=== PATIENT | male | born 1995 | race Two or more races ===

== ENCOUNTER 2024-06-30 16:26 | Inpatient (IN) | payer MEDICAID, OTHER ==
[~2024-06-30] VITALS: Ht 165.1 cm; Wt 123.0 kg
--- NOTE | 2024-06-30 18:22 | ED.PDOC ---
SOB-HPI HPI Comments 29Y M with PMHx HTN and sleep apnea presents to ED for chief complaint SOB [id number]. Additional symptoms include chills and cough. Per pt, SOB worsens with light exertion. Pt denies chest pain, nausea, vomiting, and diarrhea. Pt denies trauma and recent illness. Chief Complaint: Shortness of Breath Time Seen by MD: 17:50 Reviewed notes: Nurses Notes, Medications, Allergies Mode of Arrival: Ambulatory Severity: Mild Timing: Weeks Duration: Since onset Context: At Rest, With Light Exertion PE Risk Factors: None History of: None Modifying Factors: Nothing Associated Signs and Symptoms: Cough, Other Past Medical History Past Medical History (Other): sleep apnea Surgical History: Denies all surgeries Family History Family History: Unknown Social History Smoker: Non-Smoker Alcohol: Denies ETOH Use Drugs: Denies Drug Use Lives In: Home Constitutional: reports: chills; denies: diaphoresis, fatigue, fever, malaise, sweats, weakness, others EENTM: denies: blurred vision, double vision, ear bleeding, ear discharge, ear drainage, ear pain, ear ringing, eye pain, eye redness, hearing loss, mouth pain, mouth swelling, nasal discharge, nose bleeding, nose congestion, nose pain, photophobia, tearing, throat pain, throat swelling, voice changes, others Respiratory: reports: cough, SOB at rest, shortness of breath, SOB with excertion; denies: hemoptysis, orthopnea, stridor, wheezing, others Cardiovascular: denies: chest pain, dizzy spells, diaphoresis, Dyspnea on exertion, edema, irregular heart beat, left arm pain, lightheadedness, palpitations, PND, syncope, others Gastrointestinal: denies: abdomen distended, abdominal pain, blood streaked bowels, constipated, diarrhea, dysphagia, difficulty swallowing, hematemesis, melena, nausea, poor appetite, poor fluid intake, rectal bleeding, rectal pain, vomiting, others Genitourinary: denies: burning, dysuria, flank pain, frequency, hematuria, incontinence, penile discharge, penile sore, pain, testicle pain, testicle swelling, urgency, others Neurological: denies: dizziness, fainting, headache, left sided numbness, left sided weakness, numbness, paresthesia, pre-existing deficit, right sided numbness, right sided weakness, seizure, speech problems, tingling, tremors, weakness, others Musculoskeletal: denies: back pain, gout, joint pain, joint swelling, muscle pain, muscle stiffness, neck pain, others Integumetry: denies: bruises, change in color, change in hair/nails, dryness, laceration, lesions, lumps, rash, wounds, others Allergic/Immunocompromised: denies: Difficulty Healing, Frequent Infections, Hives, Itching, others Hematologic/Lymphatic: denies: anemia, blood clots, easy bleeding, easy bruising, swollen glands, others Endocrine: denies: excessive hunger, excessive sweating, excessive thirst, excessive urination, flushing, intolerance to cold, intolerance to heat, unexp lained weight gain, unexplained weight loss, others Psychiatric: denies: anxiety, bipolar disorder, depression, hopeless, panic disorder, schizophrenia, sleepless, suicidal, others All Other Systems: Reviewed and Negative Physical Exam General Appearance: No Apparent Distress, Normal HEENT: Normal ENT Inspection, Pharynx Normal, TMs Normal Neck: Full Range of Motion, Non-Tender, Normal, Normal Inspection Respiratory: Chest Non-Tender, Lungs Clear, No Accessory Muscle Use, No Respiratory Distress, Normal Breath Sounds Cardiovascular: No Edema, No JVD, No Murmur, No Gallop, Normal Peripheral Pulse s, Regular Rate/Rhythm Breast Exam: Deferred Gastrointestinal: No Organomegaly, Non Tender, No Pulsatile Mass, Normal Bowel Sounds, Soft Genitalia: Deferred Pelvic: Deferred Rectal: Deferred Extremities: No calf tenderness, Normal capillary refill, Normal inspection, Normal range of motion, Non-tender, No pedal edema Musculoskeletal : Apperance: Normal Neurologic: Alert, ict development manager II-XII nml as Tested, No Motor Deficits, Normal Affect, Normal Mood, No Sensory Deficits Cerebellar Function: Normal Reflexes: Normal Skin: Dry, Normal Color, Warm Lymphatic: No Adenopathy Was a procedure done? Was a procedure done?: No Differential Dx Differential Diagnosis: CHF, Myocardial infarction, Pneumonia, Pulmonary Embolism, Respiratory Distress, URI X-Ray, Labs, Meds, VS Vital Signs Date Time Temp Pulse Resp B/P (MAP) Pulse Ox O2 Delivery O2 Flow Rate FiO2 06/30/24 20:16 99.6 91 18 169/102 (124) 97 99.6 06/30/24 16:54 98.9 92 18 166/92 (116) 99 Lab Test 06/30/24 19:00 Range/Units White Blood Count 11.1 H 4.4-10.8 10^3/uL Red Blood Count 4.14 L 4.5-5.90 10^6/uL Hemoglobin 11.7 L 13.5-17.5 g/dL Hematocrit 34.6 L 41.0-53.0 % Mean Corpuscular Volume 83.6 80.0-100.0 fL Mean Corpuscular Hemoglobin 28.2 28.0-32.0 pg Mean Corpuscular Hemoglobin Concent 33.7 32.0-36.0 g/dL Red Cell Distribution Width 13.5 11.8-14.3 % Platelet Count 218 140-450 10^3/uL Mean Platelet Volume 9.9 6.9-10.8 fL Neutrophils (%) (Auto) 74.0 37.0-80.0 % Lymphocytes (%) (Auto) 18.8 10.0-50.0 % Monocytes (%) (Auto) 4.0 0.0-12.0 % Eosinophils (%) (Auto) 2.3 0.0-7.0 % Basophils (%) (Auto) 0.9 0.0-2.0 % Neutrophils # (Auto) 8.2 1.6-8.6 10 ^3/uL Lymphocytes # (Auto) 2.1 0.4-5.4 10 ^3/uL Monocytes # (Auto) 0.4 0-1.3 10 ^3/uL Eosinophils # (Auto) 0.3 0-0.8 10 ^3/uL Basophils # (Auto) 0.1 0-0.2 10 ^3/uL Nucleated Red Blood Cells 0.1 % Sodium Level 136 136-145 mmol/L Potassium Level 4.0 3.5-5.1 mmol/L Chloride Level 97 L 98-107 mmol/L Carbon Dioxide Level 28 20-31 mmol/L Anion Gap 11 5-15 Blood Urea Nitrogen 34 H 9-23 mg/dL Creatinine 8.49 H 0.700-1.30 mg/dL Glomerular Filtration Rate Calc 8 >90 mL/min BUN/Creatinine Ratio 4.0 L 10.0-20.0 Serum Glucose 261 H 74-106 mg/dL Calcium Level 9.4 8.7-10.4 mg/dL Total Bilirubin 0.3 0.2-1.0 mg/dL Aspartate Amino Transferase (AST) 14 13-40 U/L Alanine Aminotransferase (ALT) 32 7-40 U/L Alkaline Phosphatase 115 46-116 U/L Troponin I High Sensitivity 6 </=54 ng/L B-Type Natriuretic Peptide 823.51 0-100 pg/mL Total Protein 8.0 5.7-8.2 g/dL Albumin 4.5 3.2-4.8 g/dL X-Ray, Labs, Meds, VS Comment Imaging: X-rays and CT scans were reviewed and interpreted by this provider, imaging shows no fractures and no pathological disease. Pending radiology review. Laboratory: Labs reviewed and interpreted by this provider. Patient's labs showed acute kidney failure Recommend cardiology consult for possible CHF Recommend nephrology consult Recommend Pulmonary consult recommend De Jesus catheter for I&Os Patient has prior medical visits reviewed. Med reconciliation performed Vital signs reviewed Time of 1ST Reevaluation: 18:20 Reevaluation 1ST: Unchanged Patient Education/Counseling: Diagnosis, Treatment Family Education/Counseling: No Family Present Departure 1 Departure Time of Disposition: 21:18 Impression: Primary Impression: Kidney failure, acute Qualified Codes: N17.9 - Acute kidney failure, unspecified Additional Impressions: Pleural effusion associated with pulmonary infection CHF (congestive heart failure) Qualified Codes: I50.21 - Acute systolic (congestive) heart failure Disposition: 09 ADMITTED INPATIENT Condition: Fair Critical Care Note Critical Care Time?: No Stability Stability form required: No Heart Score Heart Score: Heart Score Response (Comments) Value History N/A 0 EKG N/A 0 Age N/A 0 Risk Factors N/A 0 Troponin N/A 0 Total 0 I personally scribed for JOI ALICEA ([email or web address]) on 06/30/24 at 18:22. Electronically submitted by Jazzmine Bobo ([email or web address]). JOI ALICEA Jun 30, 2024 18:22
--- NOTE | 2024-06-30 19:50 | DVH ---
EXAMINATION: AP portable chest radiograph CLINICAL HISTORY: sob COMPARISON: None FINDINGS: Vascular redistribution and interstitial prominence. Left basilar opacities with blunting of the lef t costophrenic angle. The cardiomediastinal silhouette otherwise appears grossly within normal limits given technique. No definite pneumothorax. IMPRESSION: Congestive type pattern with possible left pleural effusion. Underlying consolidation not excluded. P lease correlate to exclude infection.
[2024-06-30 20:38] LABS: Basophils # (auto) 0.1 10 ^3/uL (0-0.2); Basophils % (auto) 0.9 % (0.0-2.0); Eosinophils # (auto) 0.3 10 ^3/uL (0-0.8); Eosinophils % (auto) 2.3 % (0.0-7.0); Hematocrit 34.6 % (41.0-53.0); Hemoglobin 11.7 g/dL (13.5-17.5); Lymphocytes # (auto) 2.1 10 ^3/uL (0.4-5.4); Lymphocytes % (auto) 18.8 % (10.0-50.0); Mean Corpuscular Hemoglobin 28.2 pg (28.0-32.0); Mean Corpuscular Hgb Conc. 33.7 g/dL (32.0-36.0); Mean Corpuscular Volume 83.6 fL (80.0-100.0); Monocytes # (auto) 0.4 10 ^3/uL (0-1.3); Neutrophils # (auto) 8.2 10 ^3/uL (1.6-8.6); Nucleated Red Blood Cells % 0.1 %; Platelet Count (auto) 218 10^3/uL (140-450); Red Blood Cells 4.14 10^6/uL (4.5-5.90); Red Cell Distribution Width 13.5 % (11.8-14.3); White Blood Cell 11.1 10^3/uL (4.4-10.8)
[2024-06-30 21:02] LABS: Alanine Aminotransferase 32 U/L (7-40); Albumin 4.5 g/dL (3.2-4.8); Alkaline Phosphatase 115 U/L (46-116); Anion Gap 11 (5-15); Aspartate Aminotransferase 14 U/L (13-40); Calcium 9.4 mg/dL (8.7-10.4); Carbon Dioxide 28 mmol/L (20-31)
[2024-06-30 21:03] LABS: Bilirubin, Total 0.3 mg/dL (0.2-1.0); Blood Urea Nitrogen 34 mg/dL (9-23); Chloride 97 mmol/L (98-107); Glucose 261 mg/dL (74-106); Sodium 136 mmol/L (136-145)
--- NOTE | 2024-06-30 22:14 | DVHHPRES ---
History of Present Illness Resident Creating Document: GUDELIA HURST RESIDENT History of Present Illness This is a 29 years old male with past medical history of hypertension, hyperlipidemia, type 2 diabetes mellitus, obstructive sleep apnea on CPAP, ESRD on hemodialysis presented to the ED with a chief complaint of shortness of breath and dry cough for last two weeks prior to this admission. According to the patient-shortness of breath started two weeks ago and aggravated with exertion and not relieved with taking rest and associated with dry cough and wheezing. The patient denies fever, chest pain, productive cough, nausea, vomiting, abdominal pain, any change in bowel and bladder habit, sick contact or any recent traveling. The patient is on hemodialysis 3 times a week for last 1.5 yr due to ESRD. Past Medical History Hypertension, hyperlipidemia, type 2 diabetes mellitus, obstructive sleep apnea on CPAP, ESRD on hemodialysis Past Surgical History AV fistula Family History None Lives: with Family Past Social History Nonsmoker, nonalcoholic and never tried any drugs. Review of Systems Constitutional: No: Fever, Chills, Sweats, Weakness, Malaise, Other Eyes: No: Pain, Vision change, Conjunctivae inflammation, Eyelid inflammation, Other, Redness ENT: No: Ear pain, Ear discharge, Nose pain, Nose discharge, Nose congestion, Mouth pain, Mouth swelling, Throat pain, Throat swelling, Other Respiratory: Cough, Dry, Shortness of breath, Wheezing; No: SOB with excertion, Hemoptysis, Pleuritic Pain, Sputum, Wheezing, Other Cardiovascular: Edema; No: Chest Pain, Palpitations, Orthopnea, Paroxysmal Noc. Dyspnea, Lt Headedness, Other Gastrointestinal: No: Nausea, Vomiting, Abdominal Pain, Diarrhea, Constipation, Melena, Hematochezia, Other Genitourinary: No Dysuria, No Frequency, No Incontinence, No Hematuria, No Retention, No Other Musculoskeletal: No: other, neck pain, shoulder pain, arm pain, back pain, hand pain, leg pain, foot pain Skin: No: Rash, Lesions, Jaundice, Bruising, Other Neurological: No: Weakness, Numbness, Incoordination, Change in speech, Confusion, Seizures, Other Allergies: Coded Allergies: NO KNOWN ALLERGIES (Unverified , 06/30/24) Exam Vital Signs Vital Signs Date Time Temp Pulse Resp B/P (MAP) Pulse Ox O2 Delivery O2 Flow Rate FiO2 06/30/24 20:16 99.6 91 18 169/102 (124) 97 99.6 General Appearance: Alert, Oriented X3, Cooperative, mild distress HEENT: Atraumatic, PERRLA, EOMI, Mucous membr. moist/pink Respiratory: Other (Scattered wheezes in bilateral lung bases) Cardiovascular: Regular rate, Normal S1, Normal S2, No murmurs Abdominal: Normal bowel sounds, Soft, No tenderness, No hepatospenomegaly, No masses Extremities: No clubbing, No cyanosis (Bilateral 1+ pedal edema) Skin: No rashes, No breakdown, No significant lesion Neuro: Normal gait, Normal speech, Strength at 5/5 X4 ext, Normal tone, Sensation intact, Other (Grossly intact cranial nerves) Psych/Mental Status: Mental status NL, Mood NL Labs/Xrays Labs Test 06/30/24 21:18 06/30/24 19:00 Range/Units Troponin I High Sensitivity 7 </=54 ng/L White Blood Count 11.1 H 4.4-10.8 10^3/uL Red Blood Count 4.14 L 4.5-5.90 10^6/uL Hemoglobin 11.7 L 13.5-17.5 g/dL Hematocrit 34.6 L 41.0-53.0 % Mean Corpuscular Volume 83.6 80.0-100.0 fL Mean Corpuscular Hemoglobin 28.2 28.0-32.0 pg Mean Corpuscular Hemoglobin Concent 33.7 32.0-36.0 g/dL Red Cell Distribution Width 13.5 11.8-14.3 % Platelet Count 218 140-450 10^3/uL Mean Platelet Volume 9.9 6.9-10.8 fL Neutrophils (%) (Auto) 74.0 37.0-80.0 % Lymphocytes (%) (Auto) 18.8 10.0-50.0 % Monocytes (%) (Auto) 4.0 0.0-12.0 % Eosinophils (%) (Auto) 2.3 0.0-7.0 % Basophils (%) (Auto) 0.9 0.0-2.0 % Neutrophils # (Auto) 8.2 1.6-8.6 10 ^3/uL Lymphocytes # (Auto) 2.1 0.4-5.4 10 ^3/uL Monocytes # (Auto) 0.4 0-1.3 10 ^3/uL Eosinophils # (Auto) 0.3 0-0.8 10 ^3/uL Basophils # (Auto) 0.1 0-0.2 10 ^3/uL Nucleated Red Blood Cells 0.1 % Sodium Level 136 136-145 mmol/L Potassium Level 4.0 3.5-5.1 mmol/L Chloride Level 97 L 98-107 mmol/L Carbon Dioxide Level 28 20-31 mmol/L Anion Gap 11 5-15 Blood Urea Nitrogen 34 H 9-23 mg/dL Creatinine 8.49 H 0.700-1.30 mg/dL Glomerular Filtration Rate Calc 8 >90 mL/min BUN/Creatinine Ratio 4.0 L 10.0-20.0 Serum Glucose 261 H 74-106 mg/dL Calcium Level 9.4 8.7-10.4 mg/dL Total Bilirubin 0.3 0.2-1.0 mg/dL Aspartate Amino Transferase (AST) 14 13-40 U/L Alanine Aminotransferase (ALT) 32 7-40 U/L Alkaline Phosphatase 115 46-116 U/L B-Type Natriuretic Peptide 823.51 0-100 pg/mL Total Protein 8.0 5.7-8.2 g/dL Albumin 4.5 3.2-4.8 g/dL Assessment/Plan Assessment/Plan Assessment and plan: # Possible Gram-positive/Gram-negative pneumonia - chest x-ray demonstrated pulmonary vascular congestion with possible left pleural effusion - CT chest without contrast revealed moderate right pleural effusion and small left pleural effusion - Ordered flu, COVID, sputum C/S - Consulted Pulmonary for rt thoracentesis. - IV ceftriaxone 1 g daily and IV azithromycin 500 mg daily # ESRD on hemodialysis 3 times a week. - Ordered urine protein, sodium and creatinine, U/A, UDS - Ordered PTH, phosphorus, magnesium and vitamin D - Continue sevelamer 800 mg p.o. b.i.d. and calcitriol 0.25 mcg p.o. daily - [facility]. # Possible volume overload , rule out CHF - BNP is elevated and chest x-ray revealed pulmonary vascular congestion - Lasix 80 mg IV daily - Ordered Echo. # Hypertensive emergency - Continue nifedipine 60 mg p.o. daily and losartan 50 mg they p.o. daily - Clonidine 0.2 mg p.o. b.i.d - IV labetalol 10 mg Q2h p.r.n. # Type 2 diabetes mellitus, HbA1c 10.3 - Started Lantus 20 unit Q a.m. and moderate sliding scale of insulin Goal of care discussed with the patient for more than 20 minutes full code Plan of treatment discussed with Dr. Simpson Plan discussed with: Patient, Other My Orders Orders - GUDELIA HURST RESIDENT Procedure Category Date Status Time Admit ADMIT 06/30/24 Verified 22:10 Allergies [facility] 06/30/24 Verified 22:10 Code Status CODE 06/30/24 Verified 22:10 Renal DIET 07/01/24 Verified Standard(2gna,3gk,Lopho) Breakfast Sodium Chloride Lock PHA 07/01/24 Verified (Saline Lock Ns) 06:00 Ondansetron Hcl PHA 06/30/24 Verified (Zofran) 22:15 Complete Blood Count LAB 07/01/24 Verified 04:00 Comprehensive LAB 07/01/24 Verified Metabolic Panel 04:00 Echo 2d Mode Cardiac US 06/30/24 Verified DOP 22:10 Acetaminophen Tablet PHA 06/30/24 Verified (Tylenol Tablet) 22:15 Nitroglycerin PHA 06/30/24 Verified Sublingual (Ntrostat 22:15 Morphine Sulfate PHA 06/30/24 Verified Injection 22:15 Oxygen By Nasal RT 06/30/24 Verified Cannula 22:10 Stat Ekg For Chest [facility] 06/30/24 Verified Pain 22:10 Notify Md Of Changes [facility] 06/30/24 Verified From Base 22:10 Chartered Accountant For [facility] 06/30/24 Verified 24 Hours 22:10 Emergency Dysrhythmia [facility] 06/30/24 Verified Protocol 22:10 Rhythm Strips Once [facility] 06/30/24 Verified Every Shift 22:10 Date of Service: Jun 30, 2024 Billing Provider: AJ SIMPSON MD Common Visit Codes: [id number] INP/OBS CARE (HIGH) GUDELIA HURST RESIDENT Jun 30, 2024 22:14 AJ SIMPSON MD Jul 01, 2024 08:20
[2024-06-30] MEDS ORDERED: MORPHINE SULFATE INJ 2 MG/ml SYRG IV PRN (22:15)
[2024-06-30] MEDS ORDERED: NITROGLYCERIN 0.4 MG SL TAB SL PRN (22:15)
[2024-06-30] MEDS ORDERED: ONDANSETRON HCL 4 MG/2 ML VIAL IV PRN (22:15)
[2024-06-30] MEDS ORDERED: DEXTROSE (50%) 50ML SYRG IV PRN (22:30)
--- NOTE | 2024-06-30 22:32 | DVH ---
Exam: CT CHEST WITHOUT CONTRAST History: sob Comparison Study: None available at time of dictation. Technique: Multidetector spiral CT of the chest was performed from lower neck to pubic symphysis Axia l, coronal and sagittal multiplanar reformats were performed by the [facility] Radiation Dose : 1. Chest/Abdomen/Pelvis: CTDIvol 31 mGy, DLP 1187 mGy*cm. Findings: Lower neck: Within normal limits Lungs: Within normal limits Heart/Vascular Structures: Within normal limits Lymph Nodes: No adenopathy Pleura: Moderate right and mild left pleural effusions. Musculoskeletal: No aggressive focal bony lesions, acute fractures or dislocation. Upper abdomen: Unremarkable. IMPRESSION: Moderate right and small left pleural effusions with adjacent compressive atelectasis.
[2024-06-30 22:56] LABS: Magnesium 2.1 mg/dL (1.6-2.6)
[2024-06-30 23:03] LABS: Phosphorus 5.7 mg/dL (2.4-5.1)
[2024-06-30 23:59] LABS: LDL Cholesterol 43 mg/dL (< 100)
[2024-07-01] VITALS (13 sets, daily range): BP systolic 144–173; BP diastolic 79–105; PULSE 88–116; RESP 12–24; TEMP 97.7–98.7; O2SAT 92–97
[2024-07-01] LABS: Cholesterol 102 mg/dL (< 200)
[2024-07-01 00:02] LABS: HDL Cholesterol 28 mg/dL (40-59); Triglycerides 229 mg/dL (< 150)
[2024-07-01] MEDS: NIFEdipine ER 30 MG TAB PO ONE (00:19)
[2024-07-01] MEDS: SEVELAMER 800 MG TAB PO ONE (00:19)
[2024-07-01] MEDS: FUROSEMIDE 20 MG/2 ML VIAL IV ONE (00:20)
[2024-07-01] MEDS: cefTRIAXone 1GM/50ML D5W 50 ML IV ONE (00:21)
[2024-07-01] MEDS: LOSARTAN POTASSIUM 50 MG TAB PO ONE (00:23)
[2024-07-01 01:06] LABS: COVID19 ANTIGEN SOFIA FIA NEGATIVE (NEGATIVE); Rapid Influenza A Negative (Negative); Rapid Influenza B Negative (Negative)
[2024-07-01] MEDS: AZITHROMYCIN 500MG/ 250ML 250 ML IV ONE (01:36)
[2024-07-01] MEDS: LABETALOL HCL 20 MG/4 ML VL IV PRN (02:40)
[2024-07-01] MEDS ORDERED: IPRATROPIUM BROM 0.5 MG/2.5ML INH SOL NEB PRN (03:45)
[2024-07-01] MEDS: cloNIDine HCL 0.1 MG TAB PO SCH (04:10)
[2024-07-01] MEDS: ALBUTEROL SULF 2.5 MG/0.5ML(0.5%) NEB SOLN NEB PRN (04:44)
[2024-07-01 06:00] LABS: Alanine Aminotransferase 24 U/L (7-40); Albumin 3.8 g/dL (3.2-4.8); Alkaline Phosphatase 98 U/L (46-116); Anion Gap 12 (5-15); BUN/Creatinine Ratio 4.6 (10.0-20.0); Calcium 8.8 mg/dL (8.7-10.4); Carbon Dioxide 26 mmol/L (20-31); Chloride 99 mmol/L (98-107); Potassium 3.9 mmol/L (3.5-5.1); Sodium 137 mmol/L (136-145)
[2024-07-01 06:01] LABS: Total Protein 6.8 g/dL (5.7-8.2)
[2024-07-01 06:02] LABS: Basophils # (auto) 0.1 10 ^3/uL (0-0.2); Basophils % (auto) 0.8 % (0.0-2.0); Eosinophils # (auto) 0.3 10 ^3/uL (0-0.8); Eosinophils % (auto) 2.5 % (0.0-7.0); Hematocrit 28.7 % (41.0-53.0); Hemoglobin 9.9 g/dL (13.5-17.5); Lymphocytes # (auto) 2.3 10 ^3/uL (0.4-5.4); Lymphocytes % (auto) 20.8 % (10.0-50.0); Mean Corpuscular Hemoglobin 28.6 pg (28.0-32.0); Mean Corpuscular Hgb Conc. 34.4 g/dL (32.0-36.0); Mean Corpuscular Volume 83.1 fL (80.0-100.0); Monocytes # (auto) 0.5 10 ^3/uL (0-1.3); Monocytes % (auto) 4.4 % (0.0-12.0); Neutrophils # (auto) 7.8 10 ^3/uL (1.6-8.6); Neutrophils % (auto) 71.5 % (37.0-80.0); Platelet Count (auto) 205 10^3/uL (140-450); Red Blood Cells 3.45 10^6/uL (4.5-5.90); Red Cell Distribution Width 13.3 % (11.8-14.3); White Blood Cell 10.8 10^3/uL (4.4-10.8)
[2024-07-01 06:08] LABS: Aspartate Aminotransferase 11 U/L (13-40); Bilirubin, Total 0.2 mg/dL (0.2-1.0); Blood Urea Nitrogen 43 mg/dL (9-23); Glucose 285 mg/dL (74-106)
[2024-07-01] MEDS ORDERED: INSLISPI SC (06:45)
[2024-07-01] MEDS ORDERED: CLON0.2T PO (06:45)
[2024-07-01] MEDS ORDERED: CALC0.25 PO (06:45)
[2024-07-01] MEDS ORDERED: LOSA-533 PO (06:45)
[2024-07-01] MEDS ORDERED: FOLITAB22 PO (06:45)
[2024-07-01] MEDS: ACCU-CHEK COMFORT CURVE STRIP VI SCH (06:47)
[2024-07-01] MEDS ORDERED: INSLANTI SC (06:48)
[2024-07-01] MEDS: InsuLIN REG 1unit/0.01ml Soln (100units/ml) SC SCH ×2 (06:51→22:29)
[2024-07-01] MEDS: INSULIN LANTUS (GLARGINE) 1 /0.01ml (100units/ml) SC SCH (06:52)
[2024-07-01] MEDS: SODIUM CHLOR 0.9% PF (SALINE LOCK) 10ML VIAL/SYR IV SCH (06:53)
[2024-07-01 07:17] LABS: INR 1.01 (0.9-1.15); Partial Thromboplastin Time 27.9 SEC (24.5-34.5); Prothrombin Time 10.7 sec (9.3-11.8)
[2024-07-01 09:02] LABS: Hepatitis B Core Total AB Negative (Negative)
[2024-07-01] MEDS: SEVELAMER 800 MG TAB PO SCH (09:32)
[2024-07-01] MEDS: NIFEdipine ER 30 MG TAB PO SCH (09:32)
[2024-07-01] MEDS: LOSARTAN POTASSIUM 50 MG TAB PO SCH (09:32)
[2024-07-01] MEDS: CALCITRIOL 0.25 MCG CAP PO SCH (09:33)
[2024-07-01] MEDS: ACETAMINOPHEN 325 MG TAB PO PRN (10:43)
[2024-07-01 11:47] LABS: Hepatitis A Total Antibody Positive (Negative); Hepatitis B Surface Antibody Positive (Negative)
[2024-07-01 11:48] LABS: Hepatitis B Surface Antigen Negative (Negative); Hepatitis C Antibody Negative (Negative)
--- NOTE | 2024-07-01 12:51 | DVHPNRES ---
Progress Note Date Seen: Jul 01, 2024 Resident Creating Document: DEE DAWN RESIDENT Medical Necessity Reason Pt with a Central, PICC or Fol: No Subjective Review of Systems Patient is a 21-year-old male with past medical history of ESRD on hemodialysis, hypertension, recurrent pancreatitis, obstructive sleep apnea on CPAP and type 2 diabetes diagnosed 6 years ago, who came in due to shortness of breath that has been ongoing for the past 2 weeks. Patient notes that he has been having difficulty breathing, cough and wheezing for the past 2 weeks. Patient went to his PCP 2 weeks ago and was diagnosed with acute bronchitis and prescribed anti- inflammatory medications, which he states helped initially but eventually his symptoms got progressively worse. Per patient, yesterday his dyspnea was very bothersome which prompted this visit to the hospital. Denies having similar symptoms in the past. Patient is on dialysis 3 times a week, Tuesdays, , Friday via a left forearm fistula that is functioning. Patient has been on dialysis for 1.5 years. Past surgical history: Left forearm fistula Home medications: Calcitriol, clonidine, insulin glargine, insulin lispro, losartan Past Hospitalization: 2 years ago in [place] for pancreatitis Social & Personal history: Patient lives with his family and is unemployed. Denies using tobacco, alcohol, drugs. Allergies: Denies Patient seen and examined at bedside. Patient is alert and oriented to time, place person and responding to all questions. General: Fatigue Eyes: No Pain, No Vision change, No Conjunctivae inflammation, No Eyelid inflammation, No Other, No Redness ENT: No Ear pain, No Ear discharge, No Nose pain, No Nose discharge, No Nose congestion, No Mouth pain, No Mouth swelling, No Throat pain, No Throat swelling, No Other Cardiovascular: No Chest Pain, No Palpitations, No Orthopnea, Dyspnea, No Edema, No Lt Headedness, No Other Respiratory: Productive cough, SOB with exertion, Wheezing, No Hemoptysis, No Pleuritic Pain, No Sputum, No Other Gastrointestinal: No Nausea, No Vomiting, No Abdominal Pain, No Diarrhea, No Constipation, No Melena, No Hematochezia, No Other Genitourinary: No Dysuria, No Frequency, No Incontinence, No Hematuria, No Retention, No Other Musculoskeletal: No other, No neck pain, No shoulder pain, No arm pain, No back pain, No hand pain, No leg pain, No foot pain Skin: No Rash, No Lesions, No Jaundice, No Bruising, No Other Objective vital signs Vital Sign Date Time Temp Pulse Resp B/P (MAP) Pulse Ox O2 Delivery O2 Flow Rate FiO2 07/01/24 09:32 144/79 07/01/24 09:00 97.7 93 14 94 97.7 07/01/24 08:10 Room Air* 0 21 medications Current Medications Medications Dose Ordered Sig/Bharti Route Start Time Stop Time Status Last Admin Dose Admin Sodium Chloride 10 ml Q8HR IV 07/01/24 06:00 07/01/24 06:53 10 ML Ondansetron HCl 4 mg Q4HP PRN IV 06/30/24 22:15 Acetaminophen 650 mg Q6HP PRN PO 06/30/24 22:15 07/01/24 10:43 650 MG Nitroglycerin 0.4 mg Q5MINP PRN SL 06/30/24 22:15 Morphine Sulfate 2 mg Q30M PRN IV 06/30/24 22:15 Furosemide 80 mg DAILY IV 07/01/24 10:00 Ceftriaxone Sodium 50 ml @ 100 mls/hr DAILY@2100 IV 07/01/24 21:00 Azithromycin 250 ml @ 125 mls/hr DAILY@2200 IV 07/01/24 22:00 Nifedipine 60 mg DAILY PO 07/01/24 10:00 07/01/24 09:32 60 MG Losartan Potassium 50 mg DAILY PO 07/01/24 10:00 07/01/24 09:32 50 MG Calcitriol 0.25 mcg DAILY PO 07/01/24 10:00 07/01/24 09:33 0.25 MCG Diagnostic Test (Pha) 1 strip ACHS 07/01/24 07:00 07/01/24 11:23 1 STRIP Insulin Human Regular HS SC 07/01/24 22:00 Insulin Human Regular AC SC 07/01/24 07:00 07/01/24 11:22 6 UNITS Dextrose 50 ml UD PRN IV 06/30/24 22:30 Sevelamer HCl 800 mg BID PO 07/01/24 10:00 07/01/24 09:32 800 MG Labetalol HCl 10 mg Q2HPRN PRN IV 07/01/24 01:00 07/01/24 02:40 10 MG Insulin Glargine 20 units QAM SC 07/01/24 07:00 07/01/24 06:52 20 UNITS Albuterol 2.5 mg Q4HPRN PRN NEB 07/01/24 03:45 07/01/24 04:44 2.5 MG Ipratropium [place] 0.5 mg Q4HPRN PRN NEB 07/01/24 03:45 Clonidine HCl 0.2 mg BID PO 07/01/24 10:00 07/01/24 04:10 0.2 MG Examination General Appearance: Cooperative. Well developed. Well nourished. NAD Head Exam: Normal inspection Neck Exam: Normal inspection. Non-tender. Normal alignment Pulmonary/Respiratory: Chest non-tender. Clear bilateral breath sounds, no crackles, no wheezing. Cardiovascular/Chest: Regular rate and rhythm. Blowing systolic murmur heard most prominent in the mitral area. No JVD. Peripheral Pulses: 2+ Radial (R). 2+ Radial (L). 2+ Pedal (R). 2+ Pedal (L) Abdominal Exam: Normal bowel sounds. Soft. normal abdomen, no visible veins, Nontender. No hepatospenomegaly. No masses Ankle Exam: Negative ankle edema Lower extremities: 1+ lower extremity edema Neuro/Mental Status: A&O x4. Coherent. Thoughts/Psych: Normal thought pattern. Appropriate mood and affect. Good judgement and insight Skin Exam: Normal inspection. Normal color. Warm. Dry laboratory and microbiology Laboratory Tests 07/01/24 04:25 Test 07/01/24 04:25 Range/Units Serum Glucose 285 H 74-106 mg/dL Labs and/or images reviewed: Labs reviewed by me, Image(s) reviewed by me Problem List/Assessment/Plan Problem List/Assessment/Plan Likely pneumonia, Gram-positive versus Gram-negative Pleural effusion, bilateral, likely due to above CHF can not be entirely ruled out at present - CXR: Congestive type pattern and possible left pleural effusion. Underlying consolidation not excluded. - chest CT: Moderate right and small left pleural effusions with adjacent compressive atelectasis. -pulmonology on board - azithromycin IV 500 mg, IV Rocephin - ipratropium, albuterol med nebs - IV furosemide 80 mg b.i.d. Type 2 diabetes, insulin dependent, uncontrolled with A1c 10.3 - Lantus-20 units q.a.m. Moderate sliding scale insulin ESRD on hemodialysis 3 times a week Likely hyperparathyroidism due to above - nephrology on board - sevelamer 800 mg p.o. b.i.d. - IV albumin - calcitriol 0.25 mcg Hypertension - clonidine 0.2 mg p.o. b.i.d. - labetalol 10 mg as needed for SBP greater than 150 - losartan 50 mg - nifedipine 60 mg Obstructive sleep apnea, on CPAP Goals of care: Full code, discussed for >16 minutes on 07/01/24 Plan discussed with patient Plan discussed with Dr. Fan Plan discussed with: Patient, Other (RN) My Orders My Orders Orders - DEE DAWN RESIDENT Procedure Category Date Status Time Bipap/Cpap For Sleep RT 07/01/24 Logged Apnea 12:15 Communication Order ORDERS 07/01/24 Transmitted 12:16 Date of Service: Jul 01, 2024 Billing Provider: ADRY FAN MD Common Visit Codes: [id number] INP/OBS CARE(HIGH), PROCEDURE ONLY (40256) Coding Comment Comment attending attestation ESRD on HD acute respiratory failure 2/2 plef vs PNA PLEF possible PNA IDDM obesity ANDRZEJ HTN nephro for routine HD empiric ceft and azithro echo basal bolus insulin resume home meds pulm consult possible tap bipap at night POCUS done today, b/l PLEF, air bronchogram, b lines DEE DAWN RESIDENT Jul 01, 2024 12:51 ADRY FAN MD Jul 01, 2024 18:28
[2024-07-01] MEDS: FUROSEMIDE 100 MG/10ML VIAL IV SCH ×2 (13:05→17:24)
--- NOTE | 2024-07-01 14:00 | DVHSR ---
APPROVED REPORT EXAM: Two-dimensional and M-mode echocardiogram with Doppler and color Doppler. Blood Pressure: 159/94 mmHg INDICATION Pulmonary vascular congestion RISK FACTORS Height: 65, Weight: 262 DIMENSIONS LVDd5.5 (3.8-5.7cm)LA (2D)4.5 (1.9-4.0cm)Aortic Root3.3 (2.0-3.7cm) LVDs3.7 (2.5-4.0cm)LA (MM) (1.9-4.0cm)Aortic Cusp Exc2.1 (1.5-2.0cm) EF (%) 60.0 (55-70%)Rt. Atrium4.6 (1.9-4.0cm)Asc. Aorta cm IVSd1.3 (0.7-1.1cm)RV (D) (1.8-2.4cm) PWd1.2 (0.7-1.1cm) Mitral Valve MitralMitral Stenosis E wave1.52m/sMV Mean GR.6mmHg A wavem/sMV Peak GR.91mmHg E/A ratio0.02D MVAcm2 Aortic Valve Aortic ValveAortic Stenosis V11.66m/Desi Mean GR.8mmHg V22.10m/Desi Peak GR.18mmHg LVOT Diameter2.1 (1.8-2.4cm)Doppler AVA2.74cm2 Pulmonic Valve V21.09m/s Tricuspid Valve TR Velocity3.70m/s [id number] Other Information Technically limited study due to body habitus. Conclusion Normal left ventricular size and dimension. Normal left ventricular systolic function estimated ejec tion fraction 55%. There is a grade 1 diastolic dysfunction. Normal right ventricular size and dimension. Normal right ventricular systolic function. There is s evere pulmonary hypertension with estimated right ventricular systolic pressure 63 mm of mercury Normal biatrial size and dimension. Normal aortic valve structure and function. Normal mitral valve structure and function. Normal tricuspid valve structure and function. Pulmonary valve is grossly normal. No pericardial effusion.
--- NOTE | 2024-07-01 16:31 | DVHINCON2 ---
Date of service: Jul 01, [address] Valdez. Reason for Consultation End-stage renal disease management. History of Present Illness 29-year-old patient with significant history of end-stage renal disease on hemodialysis TTS with last dialysis on June 29, hypertension, hyperlipidemia, obstructive sleep apnea who presents to the hospital with dyspnea on exertion associated with a dry cough and wheezing without fever chills, chest pain orthopnea or PND. + for leg edema Initial evaluation in the ER included a chest x-ray showing bilateral pleural effusions. Labs revealed findings consistent with his end-stage renal disease status. Patient does not limits fluid intake at home and does not tolerate usually more than 800 ml UF due to headache. Past Medical History Hypertension, hyperlipidemia, type 2 diabetes mellitus, obstructive sleep apnea on CPAP, ESRD on hemodialysis Past Surgical History Av fistula creation. Allergies: Coded Allergies: NO KNOWN ALLERGIES (Unverified , 06/30/24) Home Meds Reported Medications Insulin Glargine (Lantus) 100 Unit/Ml Inj, 100 UNIT SC, INJ 07/01/24 Insulin Lispro (Human) (Humalog) 100 Unit/Ml Inj, 100 UNIT SC, INJ 07/01/24 Folic Rzbl-Wvpndthoso-Qupfxbqj (Folbic) Tab, 1 TAB PO DAILY, #90 TAB 1 Refill 07/01/24 Clonidine Hydrochloride (Clonidine Hcl) 0.2 Mg Tab, 1 TAB PO BID, #60 TAB 5 Refills 07/01/24 Calcitriol (Calcitriol) 0.25 Mcg Cap, 1 CAP PO DAILY, #30 CAP 5 Refills 07/01/24 Losartan Potassium (Losartan Potassium) 25 Mg Tab, 1 TAB PO DAILY, #90 TAB 1 Refill 07/01/24 Current Medications Current Medications Medications (Trade) Dose Ordered Sig/Bharti Route PRN Reason Start Time Stop Time Status Last Admin Sodium Chloride (Saline Lock Ns) 10 ml Q8HR IV 07/01/24 06:00 07/01/24 14:14 Ondansetron HCl (Zofran) 4 mg Q4HP PRN IV NAUSEA / VOMITING 06/30/24 22:15 Acetaminophen (Tylenol Tablet) 650 mg Q6HP PRN PO PAIN SCALE 1-3 OR TEMP>100.4 06/30/24 22:15 07/01/24 10:43 Nitroglycerin (Ntrostat Sublingual) 0.4 mg Q5MINP PRN SL FOR CHEST PAIN 06/30/24 22:15 Morphine Sulfate 2 mg Q30M PRN IV FOR CHEST PAIN 06/30/24 22:15 Furosemide (Lasix Injection) 80 mg DAILY IV 07/01/24 10:00 07/01/24 13:05 Ceftriaxone Sodium 50 ml @ 100 mls/hr DAILY@2100 IV 07/01/24 21:00 Azithromycin 250 ml @ 125 mls/hr DAILY@2200 IV 07/01/24 22:00 Nifedipine (Procardia Xl (Time-Release)) 60 mg DAILY PO 07/01/24 10:00 07/01/24 09:32 Losartan Potassium (Cozaar Tablet) 50 mg DAILY PO 07/01/24 10:00 07/01/24 09:32 Calcitriol (Rocaltrol Capsule) 0.25 mcg DAILY PO 07/01/24 10:00 07/01/24 09:33 Diagnostic Test (Pha) (Accu-Chek Comfort Curve T) 1 strip ACHS 07/01/24 07:00 07/01/24 11:23 Insulin Human Regular (InsuLIN R) HS SC 07/01/24 22:00 Insulin Human Regular (InsuLIN R) AC SC 07/01/24 07:00 07/01/24 11:22 Dextrose 50 ml UD PRN IV Blood Sugar LESS THAN 60 06/30/24 22:30 Sevelamer HCl (Renagel) 800 mg BID PO 07/01/24 10:00 07/01/24 09:32 Labetalol HCl (Labetalol HCl) 10 mg Q2HPRN PRN IV SBP>150 07/01/24 01:00 07/01/24 02:40 Insulin Glargine (Lantus) 20 units QAM SC 07/01/24 07:00 07/01/24 06:52 Albuterol (Ventolin Medneb) 2.5 mg Q4HPRN PRN NEB SHORTNESS OF BREATH 07/01/24 03:45 07/01/24 04:44 Ipratropium [place] (Atrovent Medneb) 0.5 mg Q4HPRN PRN NEB SHORTNESS OF BREATH 07/01/24 03:45 Clonidine HCl (Catapres Tablet) 0.2 mg BID PO 07/01/24 10:00 07/01/24 04:10 Family History: Patient reports no known family medical history. Family History Hypertension in the father Social History Denies smoking alcohol or drug abuse Review of Systems HEENT: Oral mucosa dry Neck no JVD Cardiovascular: Denies for chest pain denies orthopnea or PND Respiratory: +shortness of breath Gastrointestinal: Denies for nausea vomiting Musculoskeletal: Denies myalgias+ leg edema Neurological: Denies focal weakness Dermatological: Denies any rash The rest of the review of systems were reviewed pertinent positives and pertinent negatives are as per HPI up to 12 points review of systems H&P Exam Vital Signs/I&O Vital Sign Date Time Temp Pulse Resp B/P (MAP) Pulse Ox O2 Delivery O2 Flow Rate FiO2 07/01/24 13:05 144/79 07/01/24 13:00 98.1 100 16 95 98.1 07/01/24 10:00 Room Air 0.0 07/01/24 10:00 21 Physical Exam HEENT: No evidence of JVD, no oral ulcers. Pulmonary: Crackles on auscultation bilaterally Cardiovascular S1-S2, no S3 or S4 Abdomen: Bowel sounds positive, soft no rebound tenderness Skin: No rash Extremities: 2+ leg edema Neurological: Alert, oriented, no focal weakness Labs/Diagnostic Data Labs/Diagnostic Data Laboratory Tests Test 07/01/24 11:14 07/01/24 06:37 07/01/24 04:25 07/01/24 00:00 Range/Units POC Glucose 219 H 250 H 70-106 mg/dl White Blood Count 10.8 4.4-10.8 10^3/uL Red Blood Count 3.45 L 4.5-5.90 10^6/uL Hemoglobin 9.9 #L 13.5-17.5 g/dL Hematocrit 28.7 #L 41.0-53.0 % Mean Corpuscular Volume 83.1 80.0-100.0 fL Mean Corpuscular Hemoglobin 28.6 28.0-32.0 pg Mean Corpuscular Hemoglobin Concent 34.4 32.0-36.0 g/dL Red Cell Distribution Width 13.3 11.8-14.3 % Platelet Count 205 140-450 10^3/uL Mean Platelet Volume 9.3 6.9-10.8 fL Neutrophils (%) (Auto) 71.5 37.0-80.0 % Lymphocytes (%) (Auto) 20.8 10.0-50.0 % Monocytes (%) (Auto) 4.4 0.0-12.0 % Eosinophils (%) (Auto) 2.5 0.0-7.0 % Basophils (%) (Auto) 0.8 0.0-2.0 % Neutrophils # (Auto) 7.8 1.6-8.6 10 ^3/uL Lymphocytes # (Auto) 2.3 0.4-5.4 10 ^3/uL Monocytes # (Auto) 0.5 0-1.3 10 ^3/uL Eosinophils # (Auto) 0.3 0-0.8 10 ^3/uL Basophils # (Auto) 0.1 0-0.2 10 ^3/uL Nucleated Red Blood Cells 0.0 % Prothrombin Time 10.7 9.3-11.8 sec Prothrombin Time INR 1.01 0.9-1.15 Activated Partial Thromboplast Time 27.9 24.5-34.5 SEC Sodium Level 137 136-145 mmol/L Potassium Level 3.9 3.5-5.1 mmol/L Chloride Level 99 98-107 mmol/L Carbon Dioxide Level 26 20-31 mmol/L Anion Gap 12 5-15 Blood Urea Nitrogen 43 H 9-23 mg/dL Creatinine 9.26 H 0.700-1.30 mg/dL Glomerular Filtration Rate Calc 7 >90 mL/min BUN/Creatinine Ratio 4.6 L 10.0-20.0 Serum Glucose 285 H 74-106 mg/dL Calcium Level 8.8 8.7-10.4 mg/dL Total Bilirubin 0.2 0.2-1.0 mg/dL Aspartate Amino Transferase (AST) 11 L 13-40 U/L Alanine Aminotransferase (ALT) 24 7-40 U/L Alkaline Phosphatase 98 46-116 U/L Total Protein 6.8 5.7-8.2 g/dL Albumin 3.8 3.2-4.8 g/dL Influenza Type A Antigen Negative Negative Influenza Type B Antigen Negative Negative SARS-CoV-2 Antigen (Rapid) Negative NEGATIVE Test 06/30/24 23:16 06/30/24 21:18 06/30/24 19:00 Range/Units Hemoglobin A1c 10.3 H <5.7 % A1C Troponin I High Sensitivity 8 7 6 </=54 ng/L Triglycerides Level 229 H < 150 mg/dL Cholesterol Level 102 < 200 mg/dL LDL Cholesterol 43 < 100 mg/dL HDL Cholesterol 28 L 40-59 mg/dL Lipase 65 H 12-53 U/L Hepatitis A Antibody Total Positive H Negative Hepatitis B Surface Antigen Negative Negative Hepatitis B Surface Antibody Positive H Negative Hepatitis B Core Total Antibody Negative Negative Hepatitis C Antibody Negative Negative HIV (1&2) Antibody Negative Negative Phosphorus Level 5.7 H 2.4-5.1 mg/dL Magnesium Level 2.1 1.6-2.6 mg/dL Thyroid Stimulating Hormone (TSH) 3.70 0.55-4.78 uIU/mL White Blood Count 11.1 H 4.4-10.8 10^3/uL Red Blood Count 4.14 L 4.5-5.90 10^6/uL Hemoglobin 11.7 L 13.5-17.5 g/dL Hematocrit 34.6 L 41.0-53.0 % Mean Corpuscular Volume 83.6 80.0-100.0 fL Mean Corpuscular Hemoglobin 28.2 28.0-32.0 pg Mean Corpuscular Hemoglobin Concent 33.7 32.0-36.0 g/dL Red Cell Distribution Width 13.5 11.8-14.3 % Platelet Count 218 140-450 10^3/uL Mean Platelet Volume 9.9 6.9-10.8 fL Neutrophils (%) (Auto) 74.0 37.0-80.0 % Lymphocytes (%) (Auto) 18.8 10.0-50.0 % Monocytes (%) (Auto) 4.0 0.0-12.0 % Eosinophils (%) (Auto) 2.3 0.0-7.0 % Basophils (%) (Auto) 0.9 0.0-2.0 % Neutrophils # (Auto) 8.2 1.6-8.6 10 ^3/uL Lymphocytes # (Auto) 2.1 0.4-5.4 10 ^3/uL Monocytes # (Auto) 0.4 0-1.3 10 ^3/uL Eosinophils # (Auto) 0.3 0-0.8 10 ^3/uL Basophils # (Auto) 0.1 0-0.2 10 ^3/uL Nucleated Red Blood Cells 0.1 % Sodium Level 136 136-145 mmol/L Potassium Level 4.0 3.5-5.1 mmol/L Chloride Level 97 L 98-107 mmol/L Carbon Dioxide Level 28 20-31 mmol/L Anion Gap 11 5-15 Blood Urea Nitrogen 34 H 9-23 mg/dL Creatinine 8.49 H 0.700-1.30 mg/dL Glomerular Filtration Rate Calc 8 >90 mL/min BUN/Creatinine Ratio 4.0 L 10.0-20.0 Serum Glucose 261 H 74-106 mg/dL Calcium Level 9.4 8.7-10.4 mg/dL Total Bilirubin 0.3 0.2-1.0 mg/dL Aspartate Amino Transferase (AST) 14 13-40 U/L Alanine Aminotransferase (ALT) 32 7-40 U/L Alkaline Phosphatase 115 46-116 U/L B-Type Natriuretic Peptide 823.51 0-100 pg/mL Total Protein 8.0 5.7-8.2 g/dL Albumin 4.5 3.2-4.8 g/dL Parathyroid Hormone (Intact) 770.7 H 18.4-80.1 pg/mL Assessment Assessment: 1. End-stage renal disease on hemodialysis TTS 2. Diastolic heart failure exacerbation, acute 3. Hypovolemia. 4. Anemia of chronic kidney disease. 5. Diabetes type 2. Plan: HD today ordered. Continue dialysis 3 times a week inpatient. Optimize UF. Echo Add lasix IV Upon discharge Lasix BID 80 mg on non dialysis days Fluid restriction Less than 1 L per day. Cardiology consult Renal diet Thank you very much for allowing us to participate in the care of this patient Plan discussed with: Patient NEVILLE HUGHES MD Jul 01, 2024 16:31
[2024-07-01] MEDS ORDERED: ALBUMIN 25% 100 ML IV PRN (17:00)
[2024-07-01] MEDS: HYDROcodone-ACET 5/325MG TAB PO PRN (18:48)
[2024-07-01] MEDS: cefTRIAXone 1GM/50ML D5W 50 ML IV SCH (20:35)
--- NOTE | 2024-07-01 21:23 | DVHINCON2 ---
Date of service: Jul 01, 2024 Referring Physician Hiro Garcia MD Reason for Consultation Dyspnea, pleural effusion, atelectasis. History of Present Illness A 29-year-old man with past medical history of hypertension, hyperlipidemia, type 2 diabetes mellitus, obstructive sleep apnea on CPAP, and ESRD on hemodialysis who presented to the ED on 06/30/24 with a chief complaint of shortness of breath and dry cough x 2 weeks. SOB was worse w/ exertion and not relieved with rest, associated with dry cough and wheezing. The patient denied fever, chest pain, productive cough, nausea, vomiting, abdominal pain, or any other associated sx. Note, patient is on hemodialysis 3 times a week for last 1.5 years due to ESRD. Patient was admitted for further care and pulmonary consultation is requested for evaluation and management due to the above findings. Review of Systems: 14-point review of systems negative unless otherwise noted above. Past Medical History: Hypertension, hyperlipidemia, type 2 diabetes mellitus, obstructive sleep apnea on CPAP, ESRD on hemodialysis Past Surgical History: AV fistula Medications: Reviewed. Allergies: No known drug allergies. Family History: No family history of premature CAD. No family history of lung disorders. Social History: Nonsmoker. No alcohol or illicit drug use. Family History: Patient reports no known family medical history. Allergies: Coded Allergies: NO KNOWN ALLERGIES (Unverified , 06/30/24) Home Meds Reported Medications Insulin Glargine (Lantus) 100 Unit/Ml Inj, 100 UNIT SC, INJ 07/01/24 Insulin Lispro (Human) (Humalog) 100 Unit/Ml Inj, 100 UNIT SC, INJ 07/01/24 Folic Idpi-Odfkqbshqx-Jtfxwplo (Folbic) Tab, 1 TAB PO DAILY, #90 TAB 1 Refill 07/01/24 Clonidine Hydrochloride (Clonidine Hcl) 0.2 Mg Tab, 1 TAB PO BID, #60 TAB 5 Ref ills 07/01/24 Calcitriol (Calcitriol) 0.25 Mcg Cap, 1 CAP PO DAILY, #30 CAP 5 Refills 07/01/24 Losartan Potassium (Losartan Potassium) 25 Mg Tab, 1 TAB PO DAILY, #90 TAB 1 Refill 07/01/24 Current Medications Current Medications Medications (Trade) Dose Ordered Sig/Bharti Route PRN Reason Start Time Stop Time Status Last Admin Sodium Chloride (Saline Lock Ns) 10 ml Q8HR IV 07/01/24 06:00 07/01/24 14:14 Ondansetron HCl (Zofran) 4 mg Q4HP PRN IV NAUSEA / VOMITING 06/30/24 22:15 Acetaminophen (Tylenol Tablet) 650 mg Q6HP PRN PO PAIN SCALE 1-3 OR TEMP>100.4 06/30/24 22:15 07/01/24 17:22 Nitroglycerin (Ntrostat Sublingual) 0.4 mg Q5MINP PRN SL FOR CHEST PAIN 06/30/24 22:15 Morphine Sulfate 2 mg Q30M PRN IV FOR CHEST PAIN 06/30/24 22:15 Furosemide (Lasix Injection) 80 mg DAILY IV 07/01/24 10:00 07/01/24 16:55 DC 07/01/24 13:05 Ceftriaxone Sodium 50 ml @ 100 mls/hr DAILY@2100 IV 07/01/24 21:00 07/01/24 20:35 Azithromycin 250 ml @ 125 mls/hr DAILY@2200 IV 07/01/24 22:00 Nifedipine (Procardia Xl (Time-Release)) 60 mg DAILY PO 07/01/24 10:00 07/01/24 09:32 Losartan Potassium (Cozaar Tablet) 50 mg DAILY PO 07/01/24 10:00 07/01/24 09:32 Calcitriol (Rocaltrol Capsule) 0.25 mcg DAILY PO 07/01/24 10:00 07/01/24 09:33 Diagnostic Test (Pha) (Accu-Chek Comfort Curve T) 1 strip ACHS 07/01/24 07:00 07/01/24 17:00 Insulin Human Regular (InsuLIN R) HS SC 07/01/24 22:00 Insulin Human Regular (InsuLIN R) AC SC 07/01/24 07:00 07/01/24 17:00 Dextrose 50 ml UD PRN IV Blood Sugar LESS THAN 60 06/30/24 22:30 Sevelamer HCl (Renagel) 800 mg BID PO 07/01/24 10:00 07/01/24 09:32 Labetalol HCl (Labetalol HCl) 10 mg Q2HPRN PRN IV SBP>150 07/01/24 01:00 07/01/24 20:48 Insulin Glargine (Lantus) 20 units QAM SC 07/01/24 07:00 07/01/24 06:52 Albuterol (Ventolin Medneb) 2.5 mg Q4HPRN PRN NEB SHORTNESS OF BREATH 07/01/24 03:45 07/01/24 04:44 Ipratropium [place] (Atrovent Medneb) 0.5 mg Q4HPRN PRN NEB SHORTNESS OF BREATH 07/01/24 03:45 Clonidine HCl (Catapres Tablet) 0.2 mg BID PO 07/01/24 10:00 07/01/24 04:10 Furosemide (Lasix Injection) 80 mg BID IV 07/01/24 17:00 07/01/24 17:24 Albumin Human 100 ml @ 100 mls/hr WD PRN IV SBP<90 During Hemodialysis 07/01/24 17:00 Acetaminophen/ Hydrocodone Bitart ([place] 5/325MG Tab) 1 tab Q6HPRN PRN PO MODERATE PAIN (4-6 PAIN SCALE) 07/01/24 17:45 07/01/24 18:48 Vital Signs Vital Signs Date Time Temp Pulse Resp B/P (MAP) Pulse Ox O2 Delivery O2 Flow Rate FiO2 07/01/24 20:48 110 160/80 07/01/24 18:25 95 Room Air 07/01/24 18:25 0 21 21 07/01/24 17:00 98.4 12 98.4 Physical Exam Gen.: Patient lying in bed in no apparent distress. Breathing on room air. Head: Normocephalic, atraumatic. Eyes: EOMI/PERRLA. Ears: Normal hearing. Normal anatomy. Neck/trachea: Trachea midline, supple. Nose: Normal external anatomy. Mouth: Moist mucous membranes. Chest: Decreased air entry bilaterally. No wheezing or rhonchi. Cardiovascular: Positive S1, positive S2. Regular rate and rhythm. Abdomen: Positive bowel sounds in all 4 quadrants. Soft, non-tender, non- distended. : Deferred. Rectal: Deferred. Skin: Warm, dry. Intact. Extremities: 2+ radial pulses bilaterally. No lower extremity edema. Neuro: Awake, alert, oriented x3. No gross motor or sensory deficits. Cranial nerves II through XII intact. Gait not assessed. Labs/Diagnostic Data Labs Test 07/01/24 17:21 07/01/24 04:25 07/01/24 00:00 06/30/24 23:16 Range/Units POC Glucose 180 H 70-106 mg/dl White Blood Count 10.8 4.4-10.8 10^3/uL Red Blood Count 3.45 L 4.5-5.90 10^6/uL Hemoglobin 9.9 #L 13.5-17.5 g/dL Hematocrit 28.7 #L 41.0-53.0 % Mean Corpuscular Volume 83.1 80.0-100.0 fL Mean Corpuscular Hemoglobin 28.6 28.0-32.0 pg Mean Corpuscular Hemoglobin Concent 34.4 32.0-36.0 g/dL Red Cell Distribution Width 13.3 11.8-14.3 % Platelet Count 205 140-450 10^3/uL Mean Platelet Volume 9.3 6.9-10.8 fL Neutrophils (%) (Auto) 71.5 37.0-80.0 % Lymphocytes (%) (Auto) 20.8 10.0-50.0 % Monocytes (%) (Auto) 4.4 0.0-12.0 % Eosinophils (%) (Auto) 2.5 0.0-7.0 % Basophils (%) (Auto) 0.8 0.0-2.0 % Neutrophils # (Auto) 7.8 1.6-8.6 10 ^3/uL Lymphocytes # (Auto) 2.3 0.4-5.4 10 ^3/uL Monocytes # (Auto) 0.5 0-1.3 10 ^3/uL Eosinophils # (Auto) 0.3 0-0.8 10 ^3/uL Basophils # (Auto) 0.1 0-0.2 10 ^3/uL Nucleated Red Blood Cells 0.0 % Prothrombin Time 10.7 9.3-11.8 sec Prothrombin Time INR 1.01 0.9-1.15 Activated Partial Thromboplast Time 27.9 24.5-34.5 SEC Sodium Level 137 136-145 mmol/L Potassium Level 3.9 3.5-5.1 mmol/L Chloride Level 99 98-107 mmol/L Carbon Dioxide Level 26 20-31 mmol/L Anion Gap 12 5-15 Blood Urea Nitrogen 43 H 9-23 mg/dL Creatinine 9.26 H 0.700-1.30 mg/dL Glomerular Filtration Rate Calc 7 >90 mL/min BUN/Creatinine Ratio 4.6 L 10.0-20.0 Serum Glucose 285 H 74-106 mg/dL Calcium Level 8.8 8.7-10.4 mg/dL Total Bilirubin 0.2 0.2-1.0 mg/dL Aspartate Amino Transferase (AST) 11 L 13-40 U/L Alanine Aminotransferase (ALT) 24 7-40 U/L Alkaline Phosphatase 98 46-116 U/L Total Protein 6.8 5.7-8.2 g/dL Albumin 3.8 3.2-4.8 g/dL Influenza Type A Antigen Negative Negative Influenza Type B Antigen Negative Negative SARS-CoV-2 Antigen (Rapid) Negative NEGATIVE Hemoglobin A1c 10.3 H <5.7 % A1C Troponin I High Sensitivity 8 </=54 ng/L Triglycerides Level 229 H < 150 mg/dL Cholesterol Level 102 < 200 mg/dL LDL Cholesterol 43 < 100 mg/dL HDL Cholesterol 28 L 40-59 mg/dL Lipase 65 H 12-53 U/L Hepatitis A Antibody Total Positive H Negative Hepatitis B Surface Antigen Negative Negative Hepatitis B Surface Antibody Positive H Negative Hepatitis B Core Total Antibody Negative Negative Hepatitis C Antibody Negative Negative HIV (1&2) Antibody Negative Negative Test 06/30/24 21:18 06/30/24 19:00 Range/Units Phosphorus Level 5.7 H 2.4-5.1 mg/dL Magnesium Level 2.1 1.6-2.6 mg/dL Thyroid Stimulating Hormone (TSH) 3.70 0.55-4.78 uIU/mL B-Type Natriuretic Peptide 823.51 0-100 pg/mL Parathyroid Hormone (Intact) 770.7 H 18.4-80.1 pg/mL Assessment Impression: Dyspnea End-stage renal disease, on hemodialysis Pleural effusion Atelectasis Morbid obesity BMI 47.3 Plan: Supplemental oxygen PRN Titrate to keep O2 sats above 92%. CT chest demonstrates moderate right and small left pleural effusions with adjacent compressive atelectasis. Plan for right thoracentesis in the AM. Continue bronchodilators. Continue antibiotics Incentive spirometry Monitor renal function. Monitor electrolytes. Supplement as necessary. Monitor ins and outs. Diet and lifestyle modifications for weight reduction Morbid obesity - complicates all care DVT prophylaxis. Prognosis: Poor given patient's multiple co-morbidities. Rest of plan per hospitalist and other consultants. Thank you Dr. Hiro Garcia MD, for allowing me to participate in this patient's care. Further recommendations will depend on the patient's clinical course. Please do not hesitate to contact me if you have any questions or concerns. This medical document was created using an electronic medical record system with [employer] dictation system. Although these documentations are being carefully reviewed, there may still be some phonetic and typographical changes. The errors are purely typographical, due to imperfection on the software program, and do not reflect any compromise in the patient's medical care. Plan discussed with: Patient, Other (RN Salvatore/MD Garcia) RONAL WARREN MD Jul 01, 2024 21:23
[2024-07-01] MEDS: AZITHROMYCIN 500MG/ 250ML 250 ML IV SCH (22:25)
[2024-07-02] VITALS (11 sets, daily range): BP systolic 129–169; BP diastolic 70–91; PULSE 90–124; RESP 18–25; TEMP 97.1–98.6; O2SAT 92–96
[2024-07-02 06:38] LABS: Basophils # (auto) 0.1 10 ^3/uL (0-0.2); Basophils % (auto) 0.8 % (0.0-2.0); Eosinophils # (auto) 0.3 10 ^3/uL (0-0.8); Eosinophils % (auto) 3.3 % (0.0-7.0); Hematocrit 28.6 % (41.0-53.0); Hemoglobin 9.9 g/dL (13.5-17.5); Lymphocytes # (auto) 2.3 10 ^3/uL (0.4-5.4); Lymphocytes % (auto) 23.5 % (10.0-50.0); Mean Corpuscular Hemoglobin 28.6 pg (28.0-32.0); Mean Corpuscular Hgb Conc. 34.6 g/dL (32.0-36.0); Mean Corpuscular Volume 82.7 fL (80.0-100.0); Monocytes # (auto) 0.5 10 ^3/uL (0-1.3); Monocytes % (auto) 4.9 % (0.0-12.0); Neutrophils # (auto) 6.5 10 ^3/uL (1.6-8.6); Neutrophils % (auto) 67.5 % (37.0-80.0); Nucleated Red Blood Cells % 0.1 %; Platelet Count (auto) 207 10^3/uL (140-450); Red Blood Cells 3.45 10^6/uL (4.5-5.90); Red Cell Distribution Width 13.4 % (11.8-14.3); White Blood Cell 9.6 10^3/uL (4.4-10.8)
[2024-07-02 06:51] LABS: Chloride 101 mmol/L (98-107); Potassium 3.6 mmol/L (3.5-5.1); Sodium 139 mmol/L (136-145)
[2024-07-02 06:52] LABS: Anion Gap 13 (5-15); Carbon Dioxide 25 mmol/L (20-31)
[2024-07-02 06:58] LABS: BUN/Creatinine Ratio 4.8 (10.0-20.0)
[2024-07-02] MEDS ORDERED: SODIUM CHL 0.9% 1000 ML BAG XX ONE ×2 (07:00)
[2024-07-02 07:08] LABS: Glucose 109 mg/dL (74-106)
[2024-07-02 07:09] LABS: Blood Urea Nitrogen 54 mg/dL (9-23)
--- NOTE | 2024-07-02 13:20 | DVHPN2 ---
Progress Note - Dictate Date Seen: Jul 02, 2024 Medical Necessity Reason Pt with a Central, PICC or Fol: No Subjective Shortness of breath improving vital signs Vital Sign Date Time Temp Pulse Resp B/P (MAP) Pulse Ox O2 Delivery O2 Flow Rate FiO2 07/02/24 10:32 154/86 07/02/24 10:02 97.1 112 18 95 97.1 07/02/24 09:30 Room Air 0.0 07/02/24 09:30 21 Total Intake and Output 07/01/24 07/01/24 07/02/24 15:00 23:00 07:00 Intake Total 450 ml 490 ml Output Total 500 ml 1150 ml Balance -50 ml -660 ml medications Current Medications Medications Dose Ordered Sig/Bharti Route Start Time Stop Time Status Last Admin Dose Admin Sodium Chloride 10 ml Q8HR IV 07/01/24 06:00 07/02/24 06:04 10 ML Ondansetron HCl 4 mg Q4HP PRN IV 06/30/24 22:15 Acetaminophen 650 mg Q6HP PRN PO 06/30/24 22:15 07/01/24 17:22 650 MG Nitroglycerin 0.4 mg Q5MINP PRN SL 06/30/24 22:15 Morphine Sulfate 2 mg Q30M PRN IV 06/30/24 22:15 Ceftriaxone Sodium 50 ml @ 100 mls/hr DAILY@2100 IV 07/01/24 21:00 07/01/24 20:35 100 MLS/HR Azithromycin 250 ml @ 125 mls/hr DAILY@2200 IV 07/01/24 22:00 07/01/24 22:25 125 MLS/HR Nifedipine 60 mg DAILY PO 07/01/24 10:00 07/02/24 09:32 60 MG Losartan Potassium 50 mg DAILY PO 07/01/24 10:00 07/02/24 09:33 50 MG Calcitriol 0.25 mcg DAILY PO 07/01/24 10:00 07/02/24 09:33 0.25 MCG Diagnostic Test (Pha) 1 strip ACHS 07/01/24 07:00 07/02/24 11:52 1 STRIP Insulin Human Regular HS SC 07/01/24 22:00 07/01/24 22:29 6 UNITS Insulin Human Regular AC SC 07/01/24 07:00 07/02/24 11:51 3 UNITS Dextrose 50 ml UD PRN IV 06/30/24 22:30 Sevelamer HCl 800 mg BID PO 07/01/24 10:00 07/02/24 09:33 800 MG Labetalol HCl 10 mg Q2HPRN PRN IV 07/01/24 01:00 07/01/24 20:48 10 MG Insulin Glargine 20 units QAM SC 07/01/24 07:00 07/02/24 06:06 20 UNITS Albuterol 2.5 mg Q4HPRN PRN NEB 07/01/24 03:45 07/01/24 04:44 2.5 MG Ipratropium [place] 0.5 mg Q4HPRN PRN NEB 07/01/24 03:45 Clonidine HCl 0.2 mg BID PO 07/01/24 10:00 07/02/24 09:32 0.2 MG Furosemide 80 mg BID IV 07/01/24 17:00 07/02/24 09:31 80 MG Albumin Human 100 ml @ 100 mls/hr WD PRN IV 07/01/24 17:00 Acetaminophen/ Hydrocodone Bitart 1 tab Q6HPRN PRN PO 07/01/24 17:45 07/02/24 07:46 1 TAB objective HEENT: No evidence of JVD, no oral ulcers. Pulmonary: Crackles are clear on auscultation bilaterally Cardiovascular S1-S2, no S3 or S4 Abdomen: Bowel sounds positive, soft no rebound tenderness Skin: No rash Neurological: Alert, oriented, no focal weakness Extremities: 2+ edema in the lower extremities laboratory and microbiology Laboratory Tests 07/02/24 05:20 Test 07/02/24 05:20 Range/Units Serum Glucose 109 #H 74-106 mg/dL Assessment/Plan Assessment: 1. End-stage renal disease on hemodialysis TTS 2. Diastolic heart failure exacerbation, acute 3. Hypervolemia. 4. Anemia of chronic kidney disease. 5. Diabetes type 2. Plan: Continue hemodialysis TTS, today will do extra treatment aim UF 2 L(Patient does not tolerated well more sulma) 1.5L. Continue dialysis 3 times a week inpatient. Optimize UF. Echo showing diastolic heart failure Continue Lasix IV meanwhile in the hospital Upon discharge Lasix BID 80 mg on non dialysis days Fluid restriction Less than 1 L per day. Cardiology consult Renal diet HE will be dialyzed inpatient tomorrow if he stays inpatient otherwise at his HD unit. Thank you very much for allowing us to participate in the care of this patient Plan discussed with: Patient NEVILLE HUGHES MD Jul 02, 2024 13:20
--- NOTE | 2024-07-02 16:35 | DVHPNRES ---
Progress Note Date Seen: Jul 02, 2024 Resident Creating Document: DEE DAWN RESIDENT Medical Necessity Reason Pt with a Central, PICC or Fol: No Subjective Review of Systems Patient is a 21-year-old male with past medical history of ESRD on hemodialysis, hypertension, recurrent pancreatitis, obstructive sleep apnea on CPAP and type 2 diabetes diagnosed 6 years ago, who came in due to shortness of breath that has been ongoing for the past 2 weeks. Patient notes that he has been having difficulty breathing, cough and wheezing for the past 2 weeks. Patient went to his PCP 2 weeks ago and was diagnosed with acute bronchitis and prescribed anti- inflammatory medications, which he states helped initially but eventually his symptoms got progressively worse. Per patient, yesterday his dyspnea was very bothersome which prompted this visit to the hospital. Denies having similar symptoms in the past. Patient is on dialysis 3 times a week, Tuesdays, , Friday via a left forearm fistula that is functioning. Patient has been on dialysis for 1.5 years. Past surgical history: Left forearm fistula Home medications: Calcitriol, clonidine, insulin glargine, insulin lispro, losartan Past Hospitalization: 2 years ago in [place] for pancreatitis Social & Personal history: Patient lives with his family and is unemployed. Denies using tobacco, alcohol, drugs. Allergies: Denies Patient seen and examined at bedside. Patient is alert and oriented to time, place person and responding to all questions. Patient is scheduled to undergo dialysis today with removal of 2 L fluid. Denies any active ongoing pain, discomfort, dyspnea or shortness of breadth. Objective vital signs Vital Sign Date Time Temp Pulse Resp B/P (MAP) Pulse Ox O2 Delivery O2 Flow Rate FiO2 07/02/24 14:12 98.1 109 18 154/86 (108) 93 98.1 07/02/24 09:30 Room Air 0.0 07/02/24 09:30 21 Total Intake and Output 07/01/24 07/01/24 07/02/24 15:00 23:00 07:00 Intake Total 450 ml 490 ml Output Total 500 ml 1150 ml Balance -50 ml -660 ml medications Current Medications Medications Dose Ordered Sig/Bharti Route Start Time Stop Time Status Last Admin Dose Admin Sodium Chloride 10 ml Q8HR IV 07/01/24 06:00 07/02/24 13:38 10 ML Ondansetron HCl 4 mg Q4HP PRN IV 06/30/24 22:15 Acetaminophen 650 mg Q6HP PRN PO 06/30/24 22:15 07/01/24 17:22 650 MG Nitroglycerin 0.4 mg Q5MINP PRN SL 06/30/24 22:15 Morphine Sulfate 2 mg Q30M PRN IV 06/30/24 22:15 Ceftriaxone Sodium 50 ml @ 100 mls/hr DAILY@2100 IV 07/01/24 21:00 07/01/24 20:35 100 MLS/HR Azithromycin 250 ml @ 125 mls/hr DAILY@2200 IV 07/01/24 22:00 07/01/24 22:25 125 MLS/HR Nifedipine 60 mg DAILY PO 07/01/24 10:00 07/02/24 09:32 60 MG Losartan Potassium 50 mg DAILY PO 07/01/24 10:00 07/02/24 09:33 50 MG Calcitriol 0.25 mcg DAILY PO 07/01/24 10:00 07/02/24 09:33 0.25 MCG Diagnostic Test (Pha) 1 strip ACHS 07/01/24 07:00 07/02/24 11:52 1 STRIP Insulin Human Regular HS SC 07/01/24 22:00 07/01/24 22:29 6 UNITS Insulin Human Regular AC SC 07/01/24 07:00 07/02/24 11:51 3 UNITS Dextrose 50 ml UD PRN IV 06/30/24 22:30 Sevelamer HCl 800 mg BID PO 07/01/24 10:00 07/02/24 09:33 800 MG Labetalol HCl 10 mg Q2HPRN PRN IV 07/01/24 01:00 07/01/24 20:48 10 MG Insulin Glargine 20 units QAM SC 07/01/24 07:00 07/02/24 06:06 20 UNITS Albuterol 2.5 mg Q4HPRN PRN NEB 07/01/24 03:45 07/01/24 04:44 2.5 MG Ipratropium [place] 0.5 mg Q4HPRN PRN NEB 07/01/24 03:45 Clonidine HCl 0.2 mg BID PO 07/01/24 10:00 07/02/24 09:32 0.2 MG Furosemide 80 mg BID IV 07/01/24 17:00 07/02/24 09:31 80 MG Albumin Human 100 ml @ 100 mls/hr WD PRN IV 07/01/24 17:00 Acetaminophen/ Hydrocodone Bitart 1 tab Q6HPRN PRN PO 07/01/24 17:45 07/02/24 13:37 1 TAB Examination General Appearance: Cooperative. Well developed. Well nourished. NAD Head Exam: Normal inspection Neck Exam: Normal inspection. Non-tender. Normal alignment Pulmonary/Respiratory: Chest non-tender. Clear bilateral breath sounds, no crackles, no wheezing. Cardiovascular/Chest: Regular rate and rhythm. Blowing systolic murmur heard most prominent in the mitral area. No JVD. Peripheral Pulses: 2+ Radial (R). 2+ Radial (L). 2+ Pedal (R). 2+ Pedal (L) Abdominal Exam: Normal bowel sounds. Soft. normal abdomen, no visible veins, Nontender. No hepatospenomegaly. No masses Ankle Exam: Negative ankle edema Lower extremities: 1+ lower extremity edema Neuro/Mental Status: A&O x4. Coherent. Thoughts/Psych: Normal thought pattern. Appropriate mood and affect. Good judgement and insight Skin Exam: Normal inspection. Normal color. Warm. Dry laboratory and microbiology Laboratory Tests 07/02/24 05:20 Test 07/02/24 05:20 Range/Units Serum Glucose 109 #H 74-106 mg/dL Labs and/or images reviewed: Labs reviewed by me, Image(s) reviewed by me Problem List/Assessment/Plan Problem List/Assessment/Plan Likely pneumonia, Gram-positive versus Gram-negative Pleural effusion, bilateral, likely due to above CHF can not be entirely ruled out at present - CXR: Congestive type pattern and possible left pleural effusion. Underlying consolidation not excluded. - chest CT: Moderate right and small left pleural effusions with adjacent compressive atelectasis. -pulmonology on board - azithromycin IV 500 mg, IV Rocephin - ipratropium, albuterol med nebs - IV furosemide 80 mg b.i.d. Type 2 diabetes, insulin dependent, uncontrolled with A1c 10.3 - Lantus-20 units q.a.m. Moderate sliding scale insulin ESRD on hemodialysis 3 times a week Likely hyperparathyroidism due to above - nephrology on board - sevelamer 800 mg p.o. b.i.d. - IV albumin - calcitriol 0.25 mcg - strict I&Os, fluid restriction to 1000 mL Hypertension - clonidine 0.2 mg p.o. b.i.d. - labetalol 10 mg as needed for SBP greater than 150 - losartan 50 mg - nifedipine 60 mg Obstructive sleep apnea, on CPAP Goals of care: Full code, discussed for >16 minutes on 07/01/24 Plan discussed with patient Plan discussed with Dr. Fan Plan discussed with: Patient, Other (RN) My Orders My Orders Orders - DEE DAWN RESIDENT Procedure Category Date Status Time Bipap/Cpap For Sleep RT 07/01/24 Logged Apnea 17:14 Maintain Fluid JEROME 07/01/24 In Process Restrictions 19:36 Date of Service: Jul 02, 2024 Billing Provider: ADRY FAN MD Common Visit Codes: [id number] INP/OBS CARE(HIGH) DEE DAWN Jul 02, 2024 16:35 ADRY FAN MD Jul 03, 2024 17:31
--- NOTE | 2024-07-02 21:23 | DVHNC2 ---
Procedure - Ultrasound-guided right thoracentesis procedure note: Physician: Dr Edd Acuña RN Le Time out time: 2029 p.m. Patient medications and allergies reviewed. The risks and benefits of the procedure and the sedation options and risk were discussed with the patient's healthcare proxy. All questions were answered and informed consent was obtai sujata. Patient identification and proposed procedure were verified prior to the procedure by the physician, and a nurse in the patient's room. The heart rate, respiratory rate, oxygen saturations, blood pressure, adequacy of pulmonary ventilation, and response to care were monitored throughout the procedure. The physical status of the patient was reassessed after the procedure. Date: Consent: Consent was obtained from patient prior to procedure. Indication, risks, and benefits were explained at length. Procedure summary: A time out was performed and a chest x-ray was reviewed prior to procedure. The appropriate site was confirmed and marked. My hands were washed immediately prior to the procedure, I wore a surgical cap, mask with protective eyewear, sterile gown and sterile gloves throughout the procedure. The patient was prepped and draped in a sterile manner using chlorhexidine scrub after the appropriate level was percussed and confirmed by ultrasound. 1% lidocaine was used to anesthetize the skin, subcutaneous tissue, superior aspect of the rib periosteum and parietal pleura. A finder needle was then introduced over the superior aspect of the rib to locate the pleural fluid; sherie color fluid was aspirated. 5 Hungarian one-step Thoracentesis needle was then introduced through the skin incision into the pleural space using negative aspiration pressure. The thoracentesis catheter was then threaded without difficulty. 800 mL's of sherie colored fluid were removed without difficulty. The catheter was then removed. No immediate complications were noted during the procedure. A postpr ocedure chest x-ray is pending at the time of this note. The pleural fluid will be sent for cultures and cytology. Estimated blood loss is less than 5 mL's. CPT: 65473 RONAL ACUÑA MD Jul 02, 2024 21:23
--- NOTE | 2024-07-02 22:02 | DVH ---
CHEST RADIOGRAPH Indication: s/p right thoracentesis, r/o pneumothorax Technique: Single frontal view of the chest was obtained Comparison: XY CHEST XRAY 1 VIEW on DOS: 06/30/24 FINDINGS: Lines and Tubes: None Lungs: Increased density in the retrocardiac area of the left lower lobe may represent infiltrate or atelectasis.. Pleura: No effusion. No pneumothorax on the right. Cardiomediastinal contours: Unremarkable Bones: No acute osseous abnormality. IMPRESSION: 1. No pneumothorax on the right. 2. Increased density in the left lower lobe may represent infiltrate and/or atelectasis and small ple ural effusion. HS:Y .
[2024-07-02] MEDS: EPOETIN ALFA-EPBX 4,000 UNIT/ML VIAL SC ONE (22:04)
--- NOTE | 2024-07-02 23:09 | DVHPN2 ---
Progress Note - Dictate Date Seen: Jul 02, 2024 Medical Necessity Reason Pt with a Central, PICC or Fol: No Subjective Patient seen and examined at bedside. Breathing comfortably on room air. Overnight events reviewed. vital signs Vital Sign Date Time Temp Pulse Resp B/P (MAP) Pulse Ox O2 Delivery O2 Flow Rate FiO2 07/02/24 22:00 178/99 07/02/24 18:10 96 Room Air* 0 21 07/02/24 17:09 98.3 100 18 98.3 Total Intake and Output 07/01/24 07/01/24 07/02/24 15:00 23:00 07:00 Intake Total 450 ml 490 ml Output Total 500 ml 1150 ml Balance -50 ml -660 ml medications Current Medications Medications Dose Ordered Sig/Bharti Route Start Time Stop Time Status Last Admin Dose Admin Sodium Chloride 10 ml Q8HR IV 07/01/24 06:00 07/02/24 21:58 10 ML Ondansetron HCl 4 mg Q4HP PRN IV 06/30/24 22:15 Acetaminophen 650 mg Q6HP PRN PO 06/30/24 22:15 07/01/24 17:22 650 MG Nitroglycerin 0.4 mg Q5MINP PRN SL 06/30/24 22:15 Morphine Sulfate 2 mg Q30M PRN IV 06/30/24 22:15 Ceftriaxone Sodium 50 ml @ 100 mls/hr DAILY@2100 IV 07/01/24 21:00 07/01/24 20:35 100 MLS/HR Azithromycin 250 ml @ 125 mls/hr DAILY@2200 IV 07/01/24 22:00 07/02/24 21:59 125 MLS/HR Nifedipine 60 mg DAILY PO 07/01/24 10:00 07/02/24 09:32 60 MG Losartan Potassium 50 mg DAILY PO 07/01/24 10:00 07/02/24 09:33 50 MG Calcitriol 0.25 mcg DAILY PO 07/01/24 10:00 07/02/24 09:33 0.25 MCG Diagnostic Test (Pha) 1 strip ACHS 07/01/24 07:00 07/02/24 22:01 1 STRIP Insulin Human Regular HS SC 07/01/24 22:00 07/01/24 22:29 6 UNITS Insulin Human Regular AC SC 07/01/24 07:00 07/02/24 17:06 3 UNITS Dextrose 50 ml UD PRN IV 06/30/24 22:30 Sevelamer HCl 800 mg BID PO 07/01/24 10:00 07/02/24 22:00 800 MG Labetalol HCl 10 mg Q2HPRN PRN IV 07/01/24 01:00 07/01/24 20:48 10 MG Insulin Glargine 20 units QAM SC 07/01/24 07:00 07/02/24 06:06 20 UNITS Albuterol 2.5 mg Q4HPRN PRN NEB 07/01/24 03:45 07/01/24 04:44 2.5 MG Ipratropium [place] 0.5 mg Q4HPRN PRN NEB 07/01/24 03:45 Clonidine HCl 0.2 mg BID PO 07/01/24 10:00 07/02/24 22:00 0.2 MG Furosemide 80 mg BID IV 07/01/24 17:00 07/02/24 21:58 80 MG Albumin Human 100 ml @ 100 mls/hr WD PRN IV 07/01/24 17:00 Acetaminophen/ Hydrocodone Bitart 1 tab Q6HPRN PRN PO 07/01/24 17:45 07/02/24 20:36 1 TAB objective Gen.: Patient lying in bed in no apparent distress. Breathing on room air. Head: Normocephalic, atraumatic. Eyes: EOMI/PERRLA. Ears: Normal hearing. Normal anatomy. Neck/trachea: Trachea midline, supple. Nose: Normal external anatomy. Mouth: Moist mucous membranes. Chest: Decreased air entry bilaterally. No wheezing or rhonchi. Cardiovascular: Positive S1, positive S2. Regular rate and rhythm. Abdomen: Positive bowel sounds in all 4 quadrants. Soft, non-tender, non- distended. : Deferred. Rectal: Deferred. Skin: Warm, dry. Intact. Extremities: 2+ radial pulses bilaterally. No lower extremity edema. Neuro: Awake, alert, oriented x3. No gross motor or sensory deficits. Cranial nerves II through XII intact. Gait not assessed. laboratory and microbiology Laboratory Tests 07/02/24 05:20 Test 07/02/24 05:20 Range/Units Serum Glucose 109 #H 74-106 mg/dL Assessment/Plan Impression: Dyspnea End-stage renal disease, on hemodialysis Pleural effusions Atelectasis Morbid obesity BMI 47.3 Events: Breathing on room air No respiratory distress. Limited chest ultrasound demonstrates moderate right and small left pleural effusions. S/p right thoracentesis - 800 mL's of sherie colored fluid removed from right pleural space. Send pleural fluid for cultures and cytology. Continue bronchodilators Incentive spirometry Hemodialysis today. Labs and imaging reviewed. Rest of plan as noted below. Plan: Supplemental oxygen PRN Titrate to keep O2 sats above 92%. CT chest demonstrated moderate right and small left pleural effusions with adjacent compressive atelectasis. S/p right thoracentesis - 800 mL's of sherie colored fluid removed from right pleural space. Continue bronchodilators. Continue antibiotics Incentive spirometry Monitor renal function. Monitor electrolytes. Supplement as necessary. Monitor ins and outs. Diet and lifestyle modifications for weight reduction Morbid obesity - complicates all care DVT prophylaxis. Prognosis: Poor given patient's multiple co-morbidities. Rest of plan per hospitalist and other consultants. Thank you Dr. Hiro Garcia MD, for allowing me to participate in this patient's care. Further recommendations will depend on the patient's clinical course. Please do not hesitate to contact me if you have any questions or concerns. This medical document was created using an electronic medical record system with [employer] computerized dictation system. Although these documentations are being carefully reviewed, there may still be some phonetic and typographical changes. The errors are purely typographical, due to imperfection on the software program, and do not reflect any compromise in the patient's medical care. Plan discussed with: Patient, Other (RN Salvatore) RONAL WARREN MD Jul 02, 2024 23:09
[2024-07-03] VITALS (12 sets, daily range): BP systolic 113–157; BP diastolic 57–90; PULSE 13–121; RESP 17–21; TEMP 97.8–99.1; O2SAT 94–98
[2024-07-03 01:11] LABS: Body Fluid Red Blood Cells 2266 CUMM (0-2000); Body Fluid White Blood Cells 535 CUMM (0-200)
[2024-07-03 01:29] LABS: Body Fluid Polymorphonuclear 13 % (0-25)
[2024-07-03] MEDS ORDERED: SODIUM CHL 0.9% 1000 ML BAG XX ONE (07:00)
--- NOTE | 2024-07-03 09:07 | DVHPN2 ---
Progress Note - Dictate Date Seen: Jul 03, 2024 Medical Necessity Reason Pt with a Central, PICC or Fol: No Subjective Patient feels better from the breathing perspective. Status post thoracentesis and dialysis yesterday with UF of 2 L well tolerated. vital signs Vital Sign Date Time Temp Pulse Resp B/P (MAP) Pulse Ox O2 Delivery O2 Flow Rate FiO2 07/03/24 07:51 98.6 100 18 151/85 (107) 94 98.6 07/03/24 07:24 Room Air* 0 21 Total Intake and Output 07/02/24 07/02/24 07/03/24 15:00 23:00 07:00 Intake Total 420 ml 1440 ml 240 ml Output Total 300 ml 900 ml Balance 420 ml 1140 ml -660 ml medications Current Medications Medications Dose Ordered Sig/Bharti Route Start Time Stop Time Status Last Admin Dose Admin Sodium Chloride 10 ml Q8HR IV 07/01/24 06:00 07/03/24 05:55 10 ML Ondansetron HCl 4 mg Q4HP PRN IV 06/30/24 22:15 Acetaminophen 650 mg Q6HP PRN PO 06/30/24 22:15 07/01/24 17:22 650 MG Nitroglycerin 0.4 mg Q5MINP PRN SL 06/30/24 22:15 Morphine Sulfate 2 mg Q30M PRN IV 06/30/24 22:15 Ceftriaxone Sodium 50 ml @ 100 mls/hr DAILY@2100 IV 07/01/24 21:00 07/03/24 03:21 100 MLS/HR Azithromycin 250 ml @ 125 mls/hr DAILY@2200 IV 07/01/24 22:00 07/02/24 21:59 125 MLS/HR Nifedipine 60 mg DAILY PO 07/01/24 10:00 07/02/24 09:32 60 MG Losartan Potassium 50 mg DAILY PO 07/01/24 10:00 07/02/24 09:33 50 MG Calcitriol 0.25 mcg DAILY PO 07/01/24 10:00 07/02/24 09:33 0.25 MCG Diagnostic Test (Pha) 1 strip ACHS 07/01/24 07:00 07/03/24 05:48 1 STRIP Insulin Human Regular HS SC 07/01/24 22:00 07/01/24 22:29 6 UNITS Insulin Human Regular AC SC 07/01/24 07:00 07/03/24 05:40 3 UNITS Dextrose 50 ml UD PRN IV 06/30/24 22:30 Sevelamer HCl 800 mg BID PO 07/01/24 10:00 07/02/24 22:00 800 MG Labetalol HCl 10 mg Q2HPRN PRN IV 07/01/24 01:00 07/01/24 20:48 10 MG Insulin Glargine 20 units QAM SC 07/01/24 07:00 07/03/24 05:47 20 UNITS Albuterol 2.5 mg Q4HPRN PRN NEB 07/01/24 03:45 07/01/24 04:44 2.5 MG Ipratropium [place] 0.5 mg Q4HPRN PRN NEB 07/01/24 03:45 Clonidine HCl 0.2 mg BID PO 07/01/24 10:00 07/02/24 22:00 0.2 MG Furosemide 80 mg BID IV 07/01/24 17:00 07/02/24 21:58 80 MG Albumin Human 100 ml @ 100 mls/hr WD PRN IV 07/01/24 17:00 Acetaminophen/ Hydrocodone Bitart 1 tab Q6HPRN PRN PO 07/01/24 17:45 07/03/24 03:22 1 TAB objective HEENT: No evidence of JVD, no oral ulcers. Pulmonary: Clear are clear on auscultation bilaterally Cardiovascular S1-S2, no S3 or S4 Abdomen: Bowel sounds positive, soft no rebound tenderness Skin: No rash Neurological: Alert, oriented, no focal weakness Extremities: 2+ edema in the lower extremities laboratory and microbiology Laboratory Tests 07/02/24 05:20 Test 07/02/24 05:20 Range/Units Serum Glucose 109 #H 74-106 mg/dL Assessment/Plan Assessment: 1. End-stage renal disease on hemodialysis TTS 2. Diastolic heart failure exacerbation, acute 3. Hypervolemia improving. 4. Anemia of chronic kidney disease. 5. Diabetes type 2. Plan: Continue hemodialysis TTS UF goal of 2 L again for a total of 4 L UF for the last 48 hours. Upon discharge prescribed Lasix p.o. 80 mg daily on non dialysis days Fluid restriction advised Echo showing diastolic heart failure Continue Lasix IV meanwhile in the hospital Fluid restriction Less than 1 L per day. Cardiology consult Renal diet Okay to discharge home today after dialysis. Thank you very much for allowing us to participate in the care of this patient Plan discussed with: Patient NEVILLE HUGHES MD Jul 03, 2024 09:07
[2024-07-03 10:40] LABS: Basophils # (auto) 0.1 10 ^3/uL (0-0.2); Basophils % (auto) 0.9 % (0.0-2.0); Eosinophils # (auto) 0.3 10 ^3/uL (0-0.8); Eosinophils % (auto) 3.9 % (0.0-7.0); Hematocrit 28.5 % (41.0-53.0); Hemoglobin 9.7 g/dL (13.5-17.5); Lymphocytes # (auto) 1.5 10 ^3/uL (0.4-5.4); Lymphocytes % (auto) 20.4 % (10.0-50.0); Mean Corpuscular Hemoglobin 28.5 pg (28.0-32.0); Mean Corpuscular Hgb Conc. 34.1 g/dL (32.0-36.0); Mean Corpuscular Volume 83.6 fL (80.0-100.0); Monocytes # (auto) 0.4 10 ^3/uL (0-1.3); Monocytes % (auto) 5.6 % (0.0-12.0); Neutrophils # (auto) 5.1 10 ^3/uL (1.6-8.6); Neutrophils % (auto) 69.2 % (37.0-80.0); Platelet Count (auto) 198 10^3/uL (140-450); Red Blood Cells 3.42 10^6/uL (4.5-5.90); Red Cell Distribution Width 13.3 % (11.8-14.3); White Blood Cell 7.4 10^3/uL (4.4-10.8)
[2024-07-03 10:45] LABS: Anion Gap 11 (5-15); Carbon Dioxide 27 mmol/L (20-31); Chloride 100 mmol/L (98-107); Potassium 4.1 mmol/L (3.5-5.1); Sodium 138 mmol/L (136-145)
[2024-07-03 10:46] LABS: Calcium 9.8 mg/dL (8.7-10.4)
[2024-07-03 10:51] LABS: BUN/Creatinine Ratio 4.1 (10.0-20.0)
[2024-07-03 10:52] LABS: Blood Urea Nitrogen 36 mg/dL (9-23); Glucose 169 mg/dL (74-106)
--- NOTE | 2024-07-03 14:44 | DVHPNRES ---
Progress Note Date Seen: Jul 03, 2024 Resident Creating Document: JUVENAL FONTENOT RESIDENT Medical Necessity Reason Pt with a Central, PICC or Fol: No Subjective Review of Systems pt seen and examined at bedside. mentioning improvement in his symptoms scheduled for HD today Objective vital signs Vital Sign Date Time Temp Pulse Resp B/P (MAP) Pulse Ox O2 Delivery O2 Flow Rate FiO2 07/03/24 10:52 98.3 102 18 150/81 (104) 94 98.3 07/03/24 10:00 Room Air 0.0 07/03/24 10:00 21 Total Intake and Output 07/02/24 07/02/24 07/03/24 15:00 23:00 07:00 Intake Total 420 ml 1440 ml 240 ml Output Total 300 ml 900 ml Balance 420 ml 1140 ml -660 ml medications Current Medications Medications Dose Ordered Sig/Bharti Route Start Time Stop Time Status Last Admin Dose Admin Sodium Chloride 10 ml Q8HR IV 07/01/24 06:00 07/03/24 05:55 10 ML Ondansetron HCl 4 mg Q4HP PRN IV 06/30/24 22:15 Acetaminophen 650 mg Q6HP PRN PO 06/30/24 22:15 07/01/24 17:22 650 MG Nitroglycerin 0.4 mg Q5MINP PRN SL 06/30/24 22:15 Morphine Sulfate 2 mg Q30M PRN IV 06/30/24 22:15 Ceftriaxone Sodium 50 ml @ 100 mls/hr DAILY@2100 IV 07/01/24 21:00 07/03/24 03:21 100 MLS/HR Azithromycin 250 ml @ 125 mls/hr DAILY@2200 IV 07/01/24 22:00 07/02/24 21:59 125 MLS/HR Nifedipine 60 mg DAILY PO 07/01/24 10:00 07/03/24 09:40 60 MG Losartan Potassium 50 mg DAILY PO 07/01/24 10:00 07/03/24 09:40 50 MG Calcitriol 0.25 mcg DAILY PO 07/01/24 10:00 07/03/24 09:39 0.25 MCG Diagnostic Test (Pha) 1 strip ACHS 07/01/24 07:00 07/03/24 11:30 1 STRIP Insulin Human Regular HS SC 07/01/24 22:00 07/01/24 22:29 6 UNITS Insulin Human Regular AC SC 07/01/24 07:00 07/03/24 05:40 3 UNITS Dextrose 50 ml UD PRN IV 06/30/24 22:30 Sevelamer HCl 800 mg BID PO 07/01/24 10:00 07/03/24 09:39 800 MG Labetalol HCl 10 mg Q2HPRN PRN IV 07/01/24 01:00 07/01/24 20:48 10 MG Insulin Glargine 20 units QAM SC 07/01/24 07:00 07/03/24 05:47 20 UNITS Albuterol 2.5 mg Q4HPRN PRN NEB 07/01/24 03:45 07/01/24 04:44 2.5 MG Ipratropium [place] 0.5 mg Q4HPRN PRN NEB 07/01/24 03:45 Clonidine HCl 0.2 mg BID PO 07/01/24 10:00 07/03/24 09:41 0.2 MG Furosemide 80 mg BID IV 07/01/24 17:00 07/03/24 09:39 80 MG Albumin Human 100 ml @ 100 mls/hr WD PRN IV 07/01/24 17:00 Acetaminophen/ Hydrocodone Bitart 1 tab Q6HPRN PRN PO 07/01/24 17:45 07/03/24 09:39 1 TAB Examination Examination General Appearance: Alert, Oriented X3, Cooperative, No acute distress HEENT: EOMI Respiratory: Clear to auscultation, Normal air movement Cardiovascular: Regular rate, Normal S1, Normal S2 Abdominal: Normal bowel sounds Extremities: No cyanosis, No edema, Normal pulses, No tenderness/swelling Skin: No rashes, No breakdown Neuro: normal speech and tone laboratory and microbiology Laboratory Tests 07/03/24 09:37 Test 07/03/24 09:37 Range/Units Serum Glucose 169 H 74-106 mg/dL Labs and/or images reviewed: Labs reviewed by me, Image(s) reviewed by me Problem List/Assessment/Plan Problem List/Assessment/Plan Assessment/plan Likely pneumonia, Gram-positive versus Gram-negative Pleural effusion, bilateral, likely due to above CHF can not be entirely ruled out at present - CXR: Congestive type pattern and possible left pleural effusion. Underlying consolidation not excluded. - chest CT: Moderate right and small left pleural effusions with adjacent compressive atelectasis. -pulmonology on board - azithromycin IV 500 mg, IV Rocephin - ipratropium, albuterol med nebs - IV furosemide 80 mg b.i.d. s/p thoracentesis Type 2 diabetes, insulin dependent, uncontrolled with A1c 10.3 - Lantus-20 units q.a.m. Moderate sliding scale insulin ESRD on hemodialysis 3 times a week Likely hyperparathyroidism due to above - nephrology on board - sevelamer 800 mg p.o. b.i.d. - IV albumin - calcitriol 0.25 mcg - strict I&Os, fluid restriction to 1000 mL scheduled for HD today Hypertension - clonidine 0.2 mg p.o. b.i.d. - labetalol 10 mg as needed for SBP greater than 150 - losartan 50 mg - nifedipine 60 mg Obstructive sleep apnea, on CPAP scheduled for HD today, discharge planning within 24-48 hours Goals of care: Full code, discussed for >16 minutes on 07/01/24 Plan discussed with patient Plan discussed with Dr. Macario Plan discussed with: Patient, Other Date of Service: Jul 03, 2024 Billing Provider: GILL MACARIO MD Common Visit Codes: [id number] INP/OBS CARE(HIGH) JUVENAL FONTENOT RESIDENT Jul 03, 2024 14:44 GILL MACARIO MD Jul 03, 2024 22:00
--- NOTE | 2024-07-03 16:57 | DVHPN2 ---
Progress Note - Dictate Date Seen: Jul 03, 2024 Medical Necessity Reason Pt with a Central, PICC or Fol: No Subjective Patient seen and examined at bedside. Breathing comfortably on room air. Overnight events reviewed. vital signs Vital Sign Date Time Temp Pulse Resp B/P (MAP) Pulse Ox O2 Delivery O2 Flow Rate FiO2 07/03/24 10:52 98.3 102 18 150/81 (104) 94 98.3 07/03/24 10:00 Room Air 0.0 07/03/24 10:00 21 Total Intake and Output 07/02/24 07/02/24 07/03/24 15:00 23:00 07:00 Intake Total 420 ml 1440 ml 240 ml Output Total 300 ml 900 ml Balance 420 ml 1140 ml -660 ml medications Current Medications Medications Dose Ordered Sig/Bharti Route Start Time Stop Time Status Last Admin Dose Admin Sodium Chloride 10 ml Q8HR IV 07/01/24 06:00 07/03/24 05:55 10 ML Ondansetron HCl 4 mg Q4HP PRN IV 06/30/24 22:15 Acetaminophen 650 mg Q6HP PRN PO 06/30/24 22:15 07/01/24 17:22 650 MG Nitroglycerin 0.4 mg Q5MINP PRN SL 06/30/24 22:15 Morphine Sulfate 2 mg Q30M PRN IV 06/30/24 22:15 Ceftriaxone Sodium 50 ml @ 100 mls/hr DAILY@2100 IV 07/01/24 21:00 07/03/24 03:21 100 MLS/HR Azithromycin 250 ml @ 125 mls/hr DAILY@2200 IV 07/01/24 22:00 07/02/24 21:59 125 MLS/HR Nifedipine 60 mg DAILY PO 07/01/24 10:00 07/03/24 09:40 60 MG Losartan Potassium 50 mg DAILY PO 07/01/24 10:00 07/03/24 09:40 50 MG Calcitriol 0.25 mcg DAILY PO 07/01/24 10:00 07/03/24 09:39 0.25 MCG Diagnostic Test (Pha) 1 strip ACHS 07/01/24 07:00 07/03/24 11:30 1 STRIP Insulin Human Regular HS SC 07/01/24 22:00 07/01/24 22:29 6 UNITS Insulin Human Regular AC SC 07/01/24 07:00 07/03/24 05:40 3 UNITS Dextrose 50 ml UD PRN IV 06/30/24 22:30 Sevelamer HCl 800 mg BID PO 07/01/24 10:00 07/03/24 09:39 800 MG Labetalol HCl 10 mg Q2HPRN PRN IV 07/01/24 01:00 07/01/24 20:48 10 MG Insulin Glargine 20 units QAM SC 07/01/24 07:00 07/03/24 05:47 20 UNITS Albuterol 2.5 mg Q4HPRN PRN NEB 07/01/24 03:45 07/01/24 04:44 2.5 MG Ipratropium Martin 0.5 mg Q4HPRN PRN NEB 07/01/24 03:45 Clonidine HCl 0.2 mg BID PO 07/01/24 10:00 07/03/24 09:41 0.2 MG Furosemide 80 mg BID IV 07/01/24 17:00 07/03/24 09:39 80 MG Albumin Human 100 ml @ 100 mls/hr WD PRN IV 07/01/24 17:00 Acetaminophen/ Hydrocodone Bitart 1 tab Q6HPRN PRN PO 07/01/24 17:45 07/03/24 09:39 1 TAB objective Gen.: Patient lying in bed in no apparent distress. Breathing on room air. Head: Normocephalic, atraumatic. Eyes: EOMI/PERRLA. Ears: Normal hearing. Normal anatomy. Neck/trachea: Trachea midline, supple. Nose: Normal external anatomy. Mouth: Moist mucous membranes. Chest: Decreased air entry bilaterally. No wheezing or rhonchi. Cardiovascular: Positive S1, positive S2. Regular rate and rhythm. Abdomen: Positive bowel sounds in all 4 quadrants. Soft, non-tender, non- distended. : Deferred. Rectal: Deferred. Skin: Warm, dry. Intact. Extremities: 2+ radial pulses bilaterally. No lower extremity edema. Neuro: Awake, alert, oriented x3. No gross motor or sensory deficits. Cranial nerves II through XII intact. Gait not assessed. laboratory and microbiology Laboratory Tests 07/03/24 09:37 Test 07/03/24 09:37 Range/Units Serum Glucose 169 H 74-106 mg/dL Assessment/Plan Impression: Dyspnea End-stage renal disease, on hemodialysis Pleural effusions Atelectasis Morbid obesity BMI 47.3 Events: Breathing on room air No respiratory distress. Continue antibiotics Incentive spirometry CXR demonstrates pulmonary vascular congestion, no pneumothorax. Hemodialysis per Nephrology Maintain euvolemia Monitor renal function. Monitor electrolytes. Supplement as necessary. Labs and imaging reviewed. Rest of plan as noted below. Plan: Supplemental oxygen PRN Titrate to keep O2 sats above 92%. CT chest demonstrated moderate right and small left pleural effusions with adjacent compressive atelectasis. S/p right thoracentesis on 07/02 - 800 mL's of sherie colored fluid removed from right pleural space. Bronchodilators. Continue antibiotics Incentive spirometry Monitor renal function. Monitor electrolytes. Supplement as necessary. Monitor ins and outs. Diet and lifestyle modifications for weight reduction Morbid obesity - complicates all care DVT prophylaxis. Prognosis: Poor given patient's multiple co-morbidities. Rest of plan per hospitalist and other consultants. Thank you Dr. Hiro Garcia MD, for allowing me to participate in this patient's care. Further recommendations will depend on the patient's clinical course. Please do not hesitate to contact me if you have any questions or concerns. This medical document was created using an electronic medical record system with [employer] dictation system. Although these documentations are being carefully reviewed, there may still be some phonetic and typographical changes. The errors are purely typographical, due to imperfection on the software program, and do not reflect any compromise in the patient's medical care. Plan discussed with: Patient, Other (KATHYA Bey) RONAL WARREN MD Jul 03, 2024 16:57
[2024-07-04] VITALS (9 sets, daily range): BP systolic 148–194; BP diastolic 65–95; PULSE 102–120; RESP 18–20; TEMP 98.2–99.5; O2SAT 91–99
[2024-07-04] MEDS: cefTRIAXone 1GM/50ML D5W 50 ML IV SCH (02:21)
[2024-07-04] MEDS: AZITHROMYCIN 500MG/ 250ML 250 ML IV SCH (03:45)
[2024-07-04 06:19] LABS: Basophils # (auto) 0.1 10 ^3/uL (0-0.2); Basophils % (auto) 0.9 % (0.0-2.0); Eosinophils # (auto) 0.3 10 ^3/uL (0-0.8); Eosinophils % (auto) 3.4 % (0.0-7.0); Hematocrit 28.9 % (41.0-53.0); Hemoglobin 9.8 g/dL (13.5-17.5); Lymphocytes # (auto) 1.4 10 ^3/uL (0.4-5.4); Lymphocytes % (auto) 16.3 % (10.0-50.0); Mean Corpuscular Hemoglobin 28.3 pg (28.0-32.0); Mean Corpuscular Volume 83.4 fL (80.0-100.0); Monocytes # (auto) 0.5 10 ^3/uL (0-1.3); Neutrophils # (auto) 6.4 10 ^3/uL (1.6-8.6); Neutrophils % (auto) 73.4 % (37.0-80.0); Platelet Count (auto) 193 10^3/uL (140-450); Red Blood Cells 3.46 10^6/uL (4.5-5.90); Red Cell Distribution Width 13.3 % (11.8-14.3); White Blood Cell 8.7 10^3/uL (4.4-10.8)
[2024-07-04 06:26] LABS: Anion Gap 12 (5-15); Carbon Dioxide 26 mmol/L (20-31); Chloride 99 mmol/L (98-107); Potassium 4.4 mmol/L (3.5-5.1); Sodium 137 mmol/L (136-145)
[2024-07-04 06:27] LABS: Calcium 10.4 mg/dL (8.7-10.4)
[2024-07-04 06:32] LABS: BUN/Creatinine Ratio 3.5 (10.0-20.0)
[2024-07-04 06:33] LABS: Magnesium 2.1 mg/dL (1.6-2.6)
[2024-07-04 06:41] LABS: Glucose 196 mg/dL (74-106)
[2024-07-04 06:42] LABS: Blood Urea Nitrogen 27 mg/dL (9-23)
[2024-07-04] MEDS ORDERED: AZIT-185 PO (13:30)
[2024-07-04] MEDS ORDERED: FURO80TA3 PO (13:37)
--- NOTE | 2024-07-04 13:38 | DVHDSRES ---
Discharge Summary Date of Admission Resident Creating Document: JUVENAL FONTENOT Jun 30, 2024 at 22:10 Date of Discharge: Jul 04, 2024 Admitting Diagnosis Dyspnea Labs/Diagnostic Data: Laboratory Results Test 07/04/24 11:35 07/04/24 05:31 07/02/24 21:25 07/01/24 04:25 POC Glucose 256 mg/dl (70-106) White Blood Count 8.7 10^3/uL (4.4-10.8) Red Blood Count 3.46 10^6/uL (4.5-5.90) Hemoglobin 9.8 g/dL (13.5-17.5) Hematocrit 28.9 % (41.0-53.0) Mean Corpuscular Volume 83.4 fL (80.0-100.0) Mean Corpuscular Hemoglobin 28.3 pg (28.0-32.0) Mean Corpuscular Hemoglobin Concent 34.0 g/dL (32.0-36.0) Red Cell Distribution Width 13.3 % (11.8-14.3) Platelet Count 193 10^3/uL (140-450) Mean Platelet Volume 8.2 fL (6.9-10.8) Neutrophils (%) (Auto) 73.4 % (37.0-80.0) Lymphocytes (%) (Auto) 16.3 % (10.0-50.0) Monocytes (%) (Auto) 6.0 % (0.0-12.0) Eosinophils (%) (Auto) 3.4 % (0.0-7.0) Basophils (%) (Auto) 0.9 % (0.0-2.0) Neutrophils # (Auto) 6.4 10 ^3/uL (1.6-8.6) Lymphocytes # (Auto) 1.4 10 ^3/uL (0.4-5.4) Monocytes # (Auto) 0.5 10 ^3/uL (0-1.3) Eosinophils # (Auto) 0.3 10 ^3/uL (0-0.8) Basophils # (Auto) 0.1 10 ^3/uL (0-0.2) Nucleated Red Blood Cells 0.0 % Sodium Level 137 mmol/L (136-145) Potassium Level 4.4 mmol/L (3.5-5.1) Chloride Level 99 mmol/L (98-107) Carbon Dioxide Level 26 mmol/L (20-31) Anion Gap 12 (5-15) Blood Urea Nitrogen 27 mg/dL (9-23) Creatinine 7.66 mg/dL (0.700-1.30) Glomerular Filtration Rate Calc 9 mL/min (>90) BUN/Creatinine Ratio 3.5 (10.0-20.0) Serum Glucose 196 mg/dL (74-106) Calcium Level 10.4 mg/dL (8.7-10.4) Magnesium Level 2.1 mg/dL (1.6-2.6) Body Fluid Source Pleural fluid Body Fluid pH 8.0 Body Fluid WBC (Manual) 535 CUMM (0-200) Body Fluid RBC (Manual) 2266 CUMM (0-2000) Body Fluid Mononuclear Cells 87 % Body Fluid Polymorphonuclear Cells 13 % (0-25) Prothrombin Time 10.7 sec (9.3-11.8) Prothrombin Time INR 1.01 (0.9-1.15) Activated Partial Thromboplast Time 27.9 SEC (24.5-34.5) Total Bilirubin 0.2 mg/dL (0.2-1.0) Aspartate Amino Transferase (AST) 11 U/L (13-40) Alanine Aminotransferase (ALT) 24 U/L (7-40) Alkaline Phosphatase 98 U/L (46-116) Total Protein 6.8 g/dL (5.7-8.2) Albumin 3.8 g/dL (3.2-4.8) Test 07/01/24 00:00 06/30/24 23:16 06/30/24 21:18 06/30/24 19:00 Influenza Type A Antigen Negative (Negative) Influenza Type B Antigen Negative (Negative) SARS-CoV-2 Antigen (Rapid) Negative (NEGATIVE) Hemoglobin A1c 10.3 % A1C (<5.7) Troponin I High Sensitivity 8 ng/L (</=54) Triglycerides Level 229 mg/dL (< 150) Cholesterol Level 102 mg/dL (< 200) LDL Cholesterol 43 mg/dL (< 100) HDL Cholesterol 28 mg/dL (40-59) Lipase 65 U/L (12-53) Hepatitis A Antibody Total Positive (Negative) Hepatitis B Surface Antigen Negative (Negative) Hepatitis B Surface Antibody Positive (Negative) Hepatitis B Core Total Antibody Negative (Negative) Hepatitis C Antibody Negative (Negative) HIV (1&2) Antibody Negative (Negative) Phosphorus Level 5.7 mg/dL (2.4-5.1) Thyroid Stimulating Hormone (TSH) 3.70 uIU/mL (0.55-4.78) B-Type Natriuretic Peptide 823.51 pg/mL (0-100) Parathyroid Hormone (Intact) 770.7 pg/mL (18.4-80.1) Other Laboratory Tests 07/04/24 05:31 Brief Hx & Hospital Course: Patient is a 21-year-old male with past medical history of ESRD on hemodialysis, hypertension, recurrent pancreatitis, obstructive sleep apnea on CPAP and type 2 diabetes diagnosed 6 years ago, who came in due to shortness of breath that has been ongoing for the past 2 weeks. Patient notes that he has been having difficulty breathing, cough and wheezing for the past 2 weeks. Patient went to his PCP 2 weeks ago and was diagnosed with acute bronchitis and prescribed anti- inflammatory medications, which he states helped initially but eventually his symptoms got progressively worse. Per patient, yesterday his dyspnea was very bothersome which prompted this visit to the hospital. Denies having similar symptoms in the past. Patient is on dialysis 3 times a week, Tuesdays, , Friday via a left forearm fistula that is functioning. Patient has been on dialysis for 1.5 years. Hospital course: Chest x-ray showed Congestive type pattern and possible left pleural effusion. Underlying consolidation not excluded. , CT chest showed moderate right and small left pleural effusions with adjacent compressive atelectasis, pulmonology was consulted and patient was started on azithromycin and Rocephin along with duo nebs and IV furosemide 80 mg b.i.d.. The 2nd day hospitalization, patient underwent thoracentesis with removal of 800 cc of sherie colored fluid which showed pH of 8, WBCs 535 and RBCs 2266. Diabetes was controlled with Lantus 20 units q.a.m. and a moderate sliding scale. Patient was also noted to have BUN 34 and serum creatinine 8.49 that went as high as 11.36 during this hospitalization, Nephrology was taken on board. Patient completed 2 sessions of hemodialysis during the course of his hospitalization. Patient was also started on sevelamer 800 mg p.o. b.i.d., IV albumin and continued on calcitriol 0.25 mcg. Home medication for hypertension were continued including clonidine, labetalol p.r.n., losartan and nifedipine. Patient was also maintained on CPAP during the hospitalization. On the day of discharge, patient reported improved symptoms, denied any dyspnea, chest pain or dizziness. Patient had stable vital signs and appeared well, a 6 minute walk test was conducted which showed the lowest SpO2 being 91, his hospital course was uncomplicated. Gen.: Patient lying in bed in no apparent distress. Breathing on room air. Head: Normocephalic, atraumatic. Eyes: EOMI/PERRLA. Ears: Normal hearing. Normal anatomy. Neck/trachea: Trachea midline, supple. Nose: Normal external anatomy. Mouth: Moist mucous membranes. Chest: Decreased air entry bilaterally. No wheezing or rhonchi. Cardiovascular: Positive S1, positive S2. Regular rate and rhythm. Abdomen: Positive bowel sounds in all 4 quadrants. Soft, non-tender, non- distended. : Deferred. Rectal: Deferred. Skin: Warm, dry. Intact. Extremities: 2+ radial pulses bilaterally. No lower extremity edema. Neuro: Awake, alert, oriented x3. No gross motor or sensory deficits. Cranial nerves II through XII intact. Gait normal Condition at Discharge: Good Final Diagnosis/Problems List Likely pneumonia, Gram-positive versus Gram-negative Pleural effusion, bilateral, likely due to above chronic diastolic heart failure Type 2 diabetes, insulin dependent, uncontrolled with A1c 10.3 ESRD on hemodialysis 3 times a week Likely hyperparathyroidism due to above Hypertension Obstructive sleep apnea on CPAP Discharge Disposition: Home Discharge Instruct/Medications Diet: Renal Activity: No Restrictions, As Tolerated Follow Up/Referral: Please follow up with PCP in 1-2 weeks Please attend scheduled dialysis appointment Medications: Azithromycin 250 mg for 4 days Furosemide 80 mg non dialysis days Continue other home medications Discharge Statement: "Patient was advised to return to the ER or call 911 if any headaches, dizziness, shortness of breath, chest pain, abdominal pain, bleeding, fevers, or worsening of medical condition. Patient was counseled about treatment plan, medications, possible side effects, patientverbalized understanding. All questions were answered to the best of my ability. This discharge took greater then 30 minutes in planning, reviewing documentation, counseling the patient, and discussing with other team members." ASSESSMENT ASSESSMENT Assessment Likely pneumonia, Gram-positive versus Gram-negative Pleural effusion, bilateral, likely due to above chronic diastolic heart failure Type 2 diabetes, insulin dependent, uncontrolled with A1c 10.3 ESRD on hemodialysis 3 times a week Likely hyperparathyroidism due to above Hypertension Obstructive sleep apnea on CPAP Date of Service: Jul 04, 2024 Billing Provider: GILL HILARIO MD Common Visit Codes: 66760-QRQ/OBS DISCH DAY >30min [facility] Jul 04, 2024 13:38 GILL HILARIO MD Jul 04, 2024 21:48
--- NOTE | 2024-07-04 21:54 | DVHPN2 ---
Progress Note - Dictate Date Seen: Jul 04, 2024 Medical Necessity Reason Pt with a Central, PICC or Fol: No Subjective Patient seen and examined at bedside. Breathing comfortably on room air. Overnight events reviewed. vital signs Vital Sign Date Time Temp Pulse Resp B/P (MAP) Pulse Ox O2 Delivery O2 Flow Rate FiO2 07/04/24 13:49 98.6 102 18 96 07/04/24 13:00 153/85 (107) 07/04/24 10:00 Room Air* 0 21 Total Intake and Output 07/03/24 07/03/24 07/04/24 14:59 22:59 06:59 Intake Total 520 ml 420 ml Output Total 500 ml 200 ml 640 ml Balance -500 ml 320 ml -220 ml objective Gen.: Patient lying in bed in no apparent distress. Breathing on room air. Head: Normocephalic, atraumatic. Eyes: EOMI/PERRLA. Ears: Normal hearing. Normal anatomy. Neck/trachea: Trachea midline, supple. Nose: Normal external anatomy. Mouth: Moist mucous membranes. Chest: Decreased air entry bilaterally. No wheezing or rhonchi. Cardiovascular: Positive S1, positive S2. Regular rate and rhythm. Abdomen: Positive bowel sounds in all 4 quadrants. Soft, non-tender, non- distended. : Deferred. Rectal: Deferred. Skin: Warm, dry. Intact. Extremities: 2+ radial pulses bilaterally. No lower extremity edema. Neuro: Awake, alert, oriented x3. No gross motor or sensory deficits. Cranial nerves II through XII intact. Gait not assessed. laboratory and microbiology Laboratory Tests 07/04/24 05:31 Test 07/04/24 05:31 Range/Units Serum Glucose 196 H 74-106 mg/dL Assessment/Plan Impression: Dyspnea End-stage renal disease, on hemodialysis Pleural effusions Atelectasis Morbid obesity BMI 47.3 Events: Breathing on room air No respiratory distress. Continue antibiotics Incentive spirometry Hemodialysis per Nephrology Maintain euvolemia Monitor renal function. Monitor electrolytes. Supplement as necessary. Accu-Cheks, ISS Pain control Avoid oversedation Patient is stable for discharge from the pulmonary standpoint. Recommend chest x-ray in 1-2 weeks to assess for pleural fluid reaccumulation. Labs and imaging reviewed. Rest of plan as noted below. Plan: Supplemental oxygen PRN Titrate to keep O2 sats above 92%. CT chest demonstrated moderate right and small left pleural effusions with adjacent compressive atelectasis. S/p right thoracentesis on 07/02 - 800 mL's of sherie colored fluid removed from right pleural space. Bronchodilators. Continue antibiotics Incentive spirometry Monitor renal function. Monitor electrolytes. Supplement as necessary. Monitor ins and outs. Diet and lifestyle modifications for weight reduction Morbid obesity - complicates all care DVT prophylaxis. Prognosis: Poor given patient's multiple co-morbidities. Rest of plan per hospitalist and other consultants. Thank you Dr. Hiro Garcia MD, for allowing me to participate in this patient's care. Further recommendations will depend on the patient's clinical course. Please do not hesitate to contact me if you have any questions or concerns. This medical document was created using an electronic medical record system with [employer] dictation system. Although these documentations are being carefully reviewed, there may still be some phonetic and typographical changes. The errors are purely typographical, due to imperfection on the software program, and do not reflect any compromise in the patient's medical care. Plan discussed with: Patient, Other () RONAL WARREN MD Jul 04, 2024 21:54
--- NOTE | 2024-07-06 10:29 | ECG ---
[facility] Test Date: 2024-07-01 Test Time: 21:01:08 Pat Name: SHAHLA UMAÑA Department: Room: 0270T A Gender: M Director Of Acquisitions: DIMITRI RASHEED : 1995 Requested By: RONAL WARREN Order Number: [id number] Reading MD: Cameron Gaffney Measurements Intervals [place] Rate: 95 P: 25 NC: 120 QRS: 88 QRSD: 92 T: 42 QT: 386 QTc: 486 Interpretive Statements Sinus rhythm Borderline prolonged QT interval Electronically Signed On 07-06-2024 13:32:44 PST by Cameron Gaffney Please click the below link to view image of tracing.
[2024-07-06 12:06] LABS: Protein, Body Fluid 2.6 g/dL (.)
== END 2024-07-04 15:30 | disposition home or self-care (01) | DRG 194 ==
LOC: ER 16:26 → TELE 22:10 → TELE-WESTW 07-01 06:11
PROVIDERS: ADMIT Student in an Organized Health Care Education/Training Program; ATTEND Internal Medicine Pulmonary Disease
PROC: 0W993ZZ Drainage of Right Pleural Cavity, Percutaneous Approach (ICD-10-PCS; principal; 2024-07-02)
PROC: 5A1D70Z Performance of Urinary Filtration, Intermittent, Less than 6 Hours Per Day (ICD-10-PCS; 2024-07-02)
PROC: 5A1D70Z Performance of Urinary Filtration, Intermittent, Less than 6 Hours Per Day (ICD-10-PCS; 2024-07-03)
DX: I13.2 Hypertensive heart and chronic kidney disease with heart failure and with stage 5 chronic kidney disease, or end stage renal disease (principal); J15.69 Pneumonia due to other Gram-negative bacteria; J15.9 Unspecified bacterial pneumonia; N18.6 End stage renal disease; E86.1 Hypovolemia; D63.1 Anemia in chronic kidney disease; E11.22 Type 2 diabetes mellitus with diabetic chronic kidney disease; N25.81 Secondary hyperparathyroidism of renal origin; Z20.822 Contact with and (suspected) exposure to COVID-19; E66.01 Morbid (severe) obesity due to excess calories; G47.33 Obstructive sleep apnea (adult) (pediatric); I16.1 Hypertensive emergency; E78.5 Hyperlipidemia, unspecified; Z79.4 Long term (current) use of insulin; Z79.899 Other long term (current) drug therapy; Z82.49 Family history of ischemic heart disease and other diseases of the circulatory system; Z99.2 Dependence on renal dialysis; Z68.41 Body mass index [BMI] 40.0-44.9, adult; I50.33 Acute on chronic diastolic (congestive) heart failure
CPT/HCPCS: 32555; 36415; 71045; 71250; 80048; 80053; 80061; 82962; 83036; 83690; 83735; 83880; 83970; 83986; 84100; 84443; 84484; 85025; 85610; 85730; 86703; 86704; 86706; 86708; 86803; 87205; 87340; 87426; 87804; 89051; 90935; 93306; 94640; G0378; J1815; P9047

== ENCOUNTER 2024-10-10 16:23 | Emergency (ER) | payer MEDICAID ==
[~2024-10-10] VITALS: Ht 165.1 cm; Wt 127.4 kg
[~2024-10-10 16:23] MED LIST: AZIT-185 PO; CALC0.25 PO; CLON0.2T PO; FOLITAB22 PO; FURO80TA3 PO; INSLANTI SC; INSLISPI SC; LOSA-533 PO
[2024-10-10 16:58] VITALS: BP 150/87; PULSE 94; RESP 18; TEMP 98.4; O2SAT 100
[2024-10-10] MEDS ORDERED: MUPI2CRE17 EX (18:02)
--- NOTE | 2024-10-10 18:03 | ED.PDOC ---
History of Present Illness(SKN HPI Comments HERE FOR REDNESS AND OPEN WOUND TO DIALYSIS CATHETER SITE X 1 DAY. DENIES FEVER, CHILLS, N/V. Chief Complaint: Wound Check Time Seen by MD: 16:45 Primary Care Provider: CHRIS History of Present Illness: Nurses Notes, Medications, Allergies Allergies: Coded Allergies: NO KNOWN ALLERGIES (Unverified , 06/30/24) Home Meds Active Scripts Furosemide (Furosemide) 80 Mg Tab, 1 TAB PO DAILY for 30 Days, #30 TAB 5 Refills Prov:DEE DAWN RESIDENT 07/04/24 Azithromycin (ZITHROMAX TABLET) 250 Mg Tb, 250 MG PO DAILY for 4 Days, #4 TAB 0 Refills Prov:DEE DAWN RESIDENT 07/04/24 Reported Medications Insulin Glargine (Lantus) 100 Unit/Ml Inj, 100 UNIT SC, INJ 07/01/24 Insulin Lispro (Human) (Humalog) 100 Unit/Ml Inj, 100 UNIT SC, INJ 07/01/24 Folic Vwji-Zgjlwchxxm-Xuptpaki (Folbic) Tab, 1 TAB PO DAILY, #90 TAB 1 Refill 07/01/24 Clonidine Hydrochloride (Clonidine Hcl) 0.2 Mg Tab, 1 TAB PO BID, #60 TAB 5 Refills 07/01/24 Calcitriol (Calcitriol) 0.25 Mcg Cap, 1 CAP PO DAILY, #30 CAP 5 Refills 07/01/24 Losartan Potassium (Losartan Potassium) 25 Mg Tab, 1 TAB PO DAILY, #90 TAB 1 Refill 07/01/24 Mode of Arrival: Ambulatory Past Medical History PAST MEDICAL HISTORY: Denies Past Medical History (Other): STAGE IV RENAL FAILURE CHRONIC DIALYSIS Surgical History: Denies all surgeries Family History Family History: Unknown Social History Smoker: Non-Smoker Alcohol: Denies ETOH Use Drugs: Denies Drug Use Lives In: Home Constitutional: denies: chills, diaphoresis, fatigue, fever, malaise, sweats, weakness, others EENTM: denies: blurred vision, double vision, ear bleeding, ear discharge, ear drainage, ear pain, ear ringing, eye pain, eye redness, hearing loss, mouth pain, mouth swelling, nasal discharge, nose bleeding, nose congestion, nose pain, photophobia, tearing, throat pain, throat swelling, voice changes, others Respiratory: denies: cough, hemoptysis, orthopnea, SOB at rest, shortness of breath, SOB with excertion, stridor, wheezing, others Cardiovascular: denies: chest pain, dizzy spells, diaphoresis, Dyspnea on exertion, edema, irregular heart beat, left arm pain, lightheadedness, palpitations, PND, syncope, others Gastrointestinal: denies: abdomen distended, abdominal pain, blood streaked bowels, constipated, diarrhea, dysphagia, difficulty swallowing, hematemesis, melena, nausea, poor appetite, poor fluid intake, rectal bleeding, rectal pain, vomiting, others Genitourinary: denies: burning, dysuria, flank pain, frequency, hematuria, i ncontinence, penile discharge, penile sore, pain, testicle pain, testicle swelling, urgency, others Neurological: denies: dizziness, fainting, headache, left sided numbness, left sided weakness, numbness, paresthesia, pre-existing deficit, right sided numbness, right sided weakness, seizure, speech problems, tingling, tremors, weakness, others Musculoskeletal: denies: back pain, gout, joint pain, joint swelling, muscle pain, muscle stiffness, neck pain, others Integumetry: reports: wounds (UPPER ARM OVER SHUNT SCAR); denies: bruises, change in color, change in hair/nails, dryness, laceration, lesions, lumps, rash, others Allergic/Immunocompromised: denies: Difficulty Healing, Frequent Infections, Hives, Itching, others Hematologic/Lymphatic: denies: anemia, blood clots, easy bleeding, easy bruising, swollen glands, others Endocrine: denies: excessive hunger, excessive sweating, excessive thirst, excessive urination, flushing, intolerance to cold, intolerance to heat, unexplained weight gain, unexplained weight loss, others Psychiatric: denies: anxiety, bipolar disorder, depression, hopeless, panic disorder, schizophrenia, sleepless, suicidal, others Physical Exam General Appearance: No Apparent Distress, Normal HEENT: Pharynx Normal Neck: Full Range of Motion, Non-Tender Respiratory: Lungs Clear, No Respiratory Distress, Normal Breath Sounds Cardiovascular: No Edema, No JVD, No Murmur, No Gallop, Normal Peripheral Pulses, Regular Rate/Rhythm Breast Exam: Deferred Gastrointestinal: No Organomegaly, Non Tender, No Pulsatile Mass, Normal Bowel Sounds, Soft Genitalia: Deferred Pelvic: Deferred Rectal: Deferred Extremities: Normal capillary refill, Normal inspection, Normal range of motion, Non-tender, No pedal edema Musculoskeletal : Apperance: Normal Neurologic: Alert, reflow operator II-XII nml as Tested, No Motor Deficits, Normal Affect, Normal Mood, No Sensory Deficits Cerebellar Function: Normal Reflexes: Normal Skin: Dry, Normal Color, Warm, Wounds (BLISTER WITH CLEAR FLUID POPPED OVER SHUNT SCAR LEFT UPPER ARM. TRACE ERYTHEMA NO PURULENT DRAINAGE NO STREAKING NOTED POSITIVE THRILL AND BRUIT OVER SHUNT NO NOTED BLEEDING) Lymphatic: No Adenopathy Was a procedure done? Was a procedure done?: No Differential Diagnosis (INTG) Differential Diagnosis: Abrasion, Cellulitis, Hematoma, Laceration, Puncture Wound X-Ray, Labs, Meds, VS Vital Signs Date Time Temp Pulse Resp B/P (MAP) Pulse Ox O2 Delivery O2 Flow Rate FiO2 10/10/24 16:58 98.4 94 18 150/87 (108) 100 98.4 10/10/24 16:58 94 18 100 Room Air 10/10/24 16:33 98.4 94 18 150/87 (108) 100 98.4 X-Ray, Labs, Meds, VS Comment TRIAL BACTROBAN. WOUND DRESSED. ADVISED HIM TO FOLLOW UP TOMORROW WITH HIS DIALYSIS AND HAVE HIS SHUNT RE-EVALUATED. TAKE MEDICATIONS PRESCRIBED SIDE EFFECTS DISCUSSED. ER RETURN PRECAUTIONS GIVEN PATIENT INDICATES UNDERSTANDING AGREES WITH DISCHARGE PLAN OF CARE. Time of 1ST Reevaluation: 18:00 Reevaluation 1ST: Improved Patient Education/Counseling: Diagnosis, Treatment, Prognosis, Need For Follow Up Family Education/Counseling: No Family Present Departure 1 Departure Time of Disposition: 18:01 Impression: Primary Impression: Wound infection Disposition: 01 HOME / SELF CARE / HOMELESS Condition: Stable e-Prescriptions Mupirocin Calcium (Topical) (MUPIROCIN) 2 % Cre 2 % EX BID for 7 Days, #15 GRAMS APPLY THIN LAYER TWICE DAILY TO AFFECTED AREA 7 DAYS Prov: SANDIP LUONG 10/10/24 Discharged With: Self Critical Care Note Critical Care Time?: No Stability Stability form required: SANDIP Willis Oct 10, 2024 18:03
== END 2024-10-10 18:06 | disposition home or self-care (01) ==
LOC: ER 16:23
DX: T82.7XXA Infection and inflammatory reaction due to other cardiac and vascular devices, implants and grafts, initial encounter (principal); N18.6 End stage renal disease; Z99.2 Dependence on renal dialysis; Z79.899 Other long term (current) drug therapy; Y92.89 Other specified places as the place of occurrence of the external cause